=== PATIENT | female | born 2005 | race Hispanic/Latino ===

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

== ENCOUNTER 2024-09-20 20:08 | Emergency (ER) | payer OTHER, SELFPAY ==
--- OUTSIDE RECORDS SUMMARY | 2024-09-20 20:10 | XMS_ITS | Clinical Summary ---
Author Organization [facility] Address [address] [place] [address] Care Team Providers Care Tube Cutter Operator Name Role Phone Keanu Potter BELT MEASURER-HOT DIE PICKER Primary Care Pro vider Keanu Potter BELT MEASURER-HOT DIE PICKER Unavailable Source Comments [facility],non-owned Affiliates and Associated Physician Practices is amultiple site organization consisting of ambulatory clinics and hospital sitesin [place], [place], [place] and [place]. This disclosure is being madepursuant to the Care Everywhere program and may not contain all information available regarding this patient. Last updated 17.[facility] [employer] Allergies No known active allergies Medications * Be aware that medications may not be up to date on this document. Alwaysverify current medications with the patient. BD INSULIN SYRINGE ULTRAFINE 31G X 15/64 0.5 ML syringeIndication s:Type 1 diabetes mellitus without complication, with long-term current use of insulin (HCC) Use for injections 4-6 times daily. 100 Syringe 11 09/20/19 16 Active GNP ALCOHOL SWABS 70 % USE DIRECTED 200 Each 10 05/06/19 Active azaTHIOprine 100 MGIndications:Aut oimmune hepatitis (HCC) Take 150 mg by mouth once daily 45 tablet 3 11/10/19 Active Additional Information Patient not taking.Reported on 09/15/2023 Blood Glucose Monitoring Suppl (Jirafe VERIO FLEX SYSTEM) w/Device KIT Use 1 kit as directed 2 kit 1 11/09/19 Active One Touch Delica Lancets Use to test blood sugars 5-7 times daily 200 Each 11/09/19 Active predniSONE (DELTASONE) 5 MG tablet Take 1 tablet by mouth once daily 30 tablet 5 09/14/19 Active Additional Information Patient not taking.Reported on 09/15/2023 metFORMIN (Glucophage) 500 MG tabletIndications :Controlled type 2 diabetes mellitus without complication, with long-term current use of insulin (HCC) 1 tab by mouth daily x 7 days, then 1 tab twice daily x 7 days, then 2 tabs am and 1 tab pm x 7 days, then 2 tabs twice daily. Take medication with food. 120 tablet 3 11/06/19 Active Additional Information Patient not taking.Reported on 09/15/2023 Glucagon, rDNA, (Glucagon Emergency) 1 MG KITIndications:Ty pe 1 diabetes mellitus without complication, with long-term current use of insulin ([facility]) Inject 1 mg into muscle as directed for severe low blood sugar reaction. 2 Each 11/06/19 Active Alcohol Swabs (SM Alcohol Prep)Indications: Type 1 diabetes mellitus without complication, with long-term current use of insulin (HCC) Use as directed to wipe skin prior to insulin injection 200 Each 11/06/19 Active insulin pen needle (B-D UF III MINI PEN NEEDLES) 31G X 5 MM needleIndications :Type 1 diabetes mellitus without complication, with long-term current use of insulin ([facility]) 4 times daily Use for injections 4-6 times daily. 200 Each 11/06/19 Active insulin glargine (Lantus/Semglee) 100 units/mL penIndications:Ty pe 1 diabetes mellitus without complications (HCC) INJECT 36 UNITS ONCE DAILY DIRECTED BY PROVIDER. 15 mL 5 08/18/19 Active Glucagon 1 MG/0.2ML SOAJ INJECT 1 MG SUBCUTANEOUSLY NEEDED (ADMINSITER DIRECTED BY PROVIDER FOR SEVERE LOW BLOOD SUGAR) .4 mL 08/18/19 24 Active blood glucose test stripIndications: Type 1 diabetes mellitus without complications (HCC) USE TO TEST BLOOD SUGAR 4-6 TIMES A DAY DIRECTED BY PROVIDER. 200 strip 08/18/19 24 Active insulin lispro (HumaLOG;ADMelog) 100 UNIT/ML penIndications:Ty pe 1 diabetes mellitus without complications (HCC) INJECT 68 UNITS AT BREAKFAST, 50 UNIT AT LUNCH AND 80 UNITS DINNER, 14 AT SNACKS IN ADDITION TO CORRECTION INSULIN. MAX 150 UNITS/DAY. PLEASE ALLOW FOR TWO UNIT AIR SHOT. 60 mL 5 08/18/19 24 Active Insulin Pen Needle 32G X 4 MM MISCIndications:T ype 2 diabetes mellitus without complications (HCC) USE TO ADMINISTER INSULIN 4-6 TIMES A DAY DIRECTED 200 Each 11 08/18/19 24 Active Continuous Glucose Cotton Seed Culler (Dexcom G7 Cotton Seed Culler) DEVIIndications:T ype 2 diabetes mellitus without complications (HCC) USE 1 DEVICE ONCE FOR 1 DOSE 1 Each 08/18/19 24 Active Continuous Glucose Sensor (Dexcom G7 Sensor) MISCIndications:T ype 2 diabetes mellitus without complications (HCC) USE 1 EACH EVERY 10 DAYS 3 Each 08/18/19 24 Active insulin lispro (HumaLOG;ADMelog) 100 UNIT/ML penIndications:Ty pe 1 diabetes mellitus without complications (HCC) INJECT FOR ALL MEALS/SNACKS AND HYPERGLYCEMIA CORRECTIONS DIRECTED BY PROVIDER. MAX 75 UNITS/DAY. 30 mL 5 08/18/19 24 Active Lancets (ONETOUCH DELICA PLUS 33G EXTRA FINE LANCET)Indication s:Type 1 diabetes mellitus without complications (HCC) USE TO CHECK BLOOD SUGARS 4-6 TIMES A DAY DIRECTED 200 Each 3 08/18/19 24 Active Active Problems Patient Care Coordination No te Formatting of this note migh t be different from the original. Okay to give info/discuss info with school nurse. LAMP- English. Problem Noted Date Diagnosed Date Microalbuminuria 12/03/2018 Overview (08/14/2020): date age ualb/creat (mg/g) Creat (mg/dL) 12/29/2015 39 (< 30) 09/16/2016 31 (< 30) 12/28/2016 16 (< 30) 02/17/2018 0.41 08/24/2018 25 (< 30) 09/30/2018 146 (< 30) 03/08/2019 26 (< 30) 0.35 08/14/2020 44 (< 30) Assessment & Plan (08/14/2020 4:24 PM CDT): Minimally elevated random urine microalbumin/creatinine ratio, in child with diabetes mellitus x almost 5 years Obtain first morning voided urine specimen for urine microalbumin/creatinine Assessment & Plan (03/08/2019 5:23 PM NATIONAL SALES MANAGER): H/o microalbuminuria; cause uncertain 1. Repeat spot urine microalbumin/creatinine level (consider pediatric nephrology referral if it remains elevated) Assessment & Plan (12/03/2018 9:36 AM CDT): Microalbuminuria, ? Transient vs diabetes mellitus related 1. Obtain first morning voided urine specimen for microalbumin/creatinine ratio at [facility] Nonalcoholic fatty liver disease 05/02/2017 Cyst of ovary 01/25/2017 Noncompliance with medication regimen 01/17/2017 Language barrier affecting health care 7 Obesity 06/03/2016 Autoimmune hepatitis 12/31/2015 Overview (12/31/2015): Suspected autoimmune hepatitis history: Medications: Azathioprine: increased to 150mg from 100mg in 12/23 - Started 10/23/15 (normal TPMT) Prednisone: initial wean with reinitiation of high dose Prednisone in 12/23 due to ALT of 340 - Started 10/16/15 - Labs prior to start of medications: ALT 193, AST 103 09/21/15 F-actin (smooth muscle Ab): 94 (>30 is moderate to strong positive) KRISTIN negative Anti-LKM Ab negative IgG level normal at 1281 ([id number]) Liver Biopsy 09/30/15: Labs at the time of biopsy: ALT 547 AST 316 LIVER, NEEDLE BIOPSY: - CHRONIC HEPATITIS WITH UIWA-DB-ACXTJART ACTIVITY, SEE COMMENT. - FOCAL BRIDGING FIBROSIS. Sections show cores of hepatic parenchyma involved by a mixed inflammatory infiltrate within the portal tracts comprising lymphocytes, eosinophils, neutrophils, and a rare plasma cell. The degree of portal inflammation is mild overall, with focal moderate involvement. There is mild but extensive interface activity. Lobular inflammatory foci are infrequent, but there is satellitosis, scattered hepatocellular swelling, apoptosis (acidophil bodies), and lipofuscin-laden macrophages within the lobules. Macrosteatosis is present in less than 5% of the parenchyma, distributed predominantly in zone 1, along with glycogenated nuclei. COMMENT: The histopathologic findings in this case are nonspecific and may be seen in a variety of settings. A diagnosis of autoimmune hepatitis is favored, despite the relative lack of plasma cells in the inflammatory infiltrate Assessment & Plan (08/19/2023 2:43 PM CDT): repeat cmp, ggt 2. f/u with pediatric gastroenterology/hepatology Controlled type 2 diabetes m ellitus without complication, with long-term current use of insulin 09/19/2015 Overview (11/22/2017): Diagnosed (09/19/2015): Diabetes mellitus, probable type II (elevated C-peptide/acanthosis nigricans); hemoglobin A1c 10.1 %; C-peptide 6.36 ng/dL (0.78-1.89), serum anti-LINDA < 5 U/mL (< 5.0), anti-insulin [IA-2 ab] < 0.8 U/mL (0.0-0.8), anti-islet cell IgG antibodies < 1:4 (< 1:4). [Complicated by chronic prednisone therapy to treat autoimmune hepatitis (Sep, 2015)] Complications: none Hospitalizations: none Screening(s): [09/21/2015] - TSH 1.07 uIU/mL (0.35-4.95), free T4 1.13 ng/dL (0.70-1.48); [12/29/15] urine microalbumin/creatinine (mg/g) 40 (< 30), [09/16/16] urine microalbumin/creatinine (mg/g) 32 (< 30),[09/16/16] urine microalbumin/creatinine (mg/g) 16 (< 30), Assessment & Plan (08/19/2023 2:42 PM CDT): Diabetes mellitus, Type 2, duration: 7 year(s), complications: none; Glycemic control: poor control/missed medication doses/lapsed health insurance; PHQ-9 (depression) screenin, mental health referral(s): no; Recommended: resume basal/bolus insulin (Edwige would like to start counting carbs with meals rather than fixed doses); RD visit: yes; RN/CDE visit: yes, review diabetes education, insulin to carb dosing; Counseled: lab results, treatment options, and follow up plan; prescriptions refilled: yes; school letter provided: N\A; Schedule eye examination: yes; rtc: 2 month(s) Orders Placed This Encounter COMPREHENSIVE METABOLIC PANEL Standing Status: Future Number of Occurrences: 1 Standing Expiration Date: 08/07/2024 Order Specific Question: Release to patient Answer: Immediate LIPID PROFILE Standing Status: Future Number of Occurrences: 1 Standing Expiration Date: 08/07/2024 Order Specific Question: Release to patient Answer: Immediate MICROALB/CREAT RATIO URINE RANDOM PANEL Standing Status: Future Standing Expiration Date: 08/07/2024 Order Specific Question: Release to patient Answer: Immediate URIC ACID BLOOD Standing Status: Future Number of Occurrences: 1 Standing Expiration Date: 08/12/2024 Order Specific Question: Release to patient Answer: Immediate PTH INTACT W/O CALCIUM Standing Status: Future Number of Occurrences: 1 Standing Expiration Date: 08/12/2024 Order Specific Question: Release to patient Answer: Immediate GGT Standing Status: Future Number of Occurrences: 1 Standing Expiration Date: 08/12/2024 Order Specific Question: Release to patient Answer: Immediate Referral to Medical Nutrition Therapy Standing Status: Standing Number of Occurrences: 4 Standing Expiration Date: 08/17/2024 Referral Priority: Routine Referral Type: Consultation Referral Reason: Specialty Services Required Referral Location: [facility] Number of Visits Requested: 4 Referral to Medical Nutrition Therapy Standing Status: Standing Number of Occurrences: 1 Referral Priority: Routine Referral Type: Consultation Referral Reason: Specialty Services Required Referral Location: [facility] Number of Visits Requested: 4 HEMOGLOBIN A1C - POCT (IP) LEEROY Standing Status: Future Number of Occurrences: 1 Standing Expiration Date: 08/07/2024 Order Specific Question: Release to patient Answer: Immediate Glucose sensor [Dexcom G 6] daily: yes Lantus 36 u daily Humalog 1 u per 10 g carb (am), 1 u per 10 g carb (noon), 1 u per 10 g carb (pm), 1 u per 10 g carb (snack) Correction: 2 u per 50 mg/dL over 150 mg/dL Sick day correction: 2 u per 50 mg/dL over 150 mg/dL Follow up by telephone in 1-2 day(s) to review interval blood glucose levels and adjust insulin dose Return visit in 2 month(s). Assessment & Plan (11/05/2021 2:25 PM CDT): Diabetes mellitus, Type 2, duration: 6 year(s), complications: none; Glycemic control: fair control; PHQ-9 (depression) screening: N/A, mental health referral(s): no; Recommended: add metformin daily, see below, continue current insulin dose, hope to lower insulin dose with increasing metformin dose; RD visit: no; Counseled: increasing daily physical activity; lab results, treatment options and follow up plan; prescriptions refilled: yes; school letter provided: no; Schedule eye examination: yes; rtc: 3 month(s) Orders Placed This Encounter LIPID PROFILE Standing Status: Future Number of Occurrences: 1 Standing Expiration Date: 10/22/2022 Order Specific Question: Release to patient Answer: Immediate LIPID PROFILE Standing Status: Standing Number of Occurrences: 1 Order Specific Question: Release to patient Answer: Immediate HEMOGLOBIN A1C - POCT (IP) BEAKER Standing Status: Future Number of Occurrences: 1 Standing Expiration Date: 10/22/2022 Order Specific Question: Release to patient Answer: Immediate HEMOGLOBIN A1C - POCT (IP) BEAKER Standing Status: Standing Number of Occurrences: 1 Order Specific Question: Release to patient Answer: Immediate metFORMIN (Glucophage) 500 MG tablet Si tab by mouth daily x 7 days, then 1 tab twice daily x 7 days, then 2 tabs am and 1 tab pm x 7 days, then 2 tabs twice daily. Take medication with food. Dispense: 120 tablet Refill: 3 Glucagon, rDNA, (Glucagon Emergency) 1 MG KIT Sig: Inject 1 mg into muscle as directed for severe low blood sugar reaction. Dispense: 2 Each Refill: 1 Alcohol Swabs (SM Alcohol Prep) Sig: Use as directed to wipe skin prior to insulin injection Dispense: 200 Each Refill: 11 insulin glargine (Lantus SoloStar) pen Sig: Use 36 units daily. Dispense: 30 mL Refill: 5 insulin lispro (HumaLOG KwikPen) 100 UNIT/ML pen Sig: INJECT 68 UNITS AT BREAKFAST, 50 UNIT AT LUNCH AND 80 UNITS DINNER, 14 AT SNACKS IN ADDITION TO CORRECTION INSULIN. Dispense: 75 mL Refill: 5 insulin pen needle (B-D UF III MINI PEN NEEDLES) 31G X 5 MM needle Si times daily Use for injections 4-6 times daily. Dispense: 200 Each Refill: 11 Lantus 36 u daily Humalog 68 u (am), 50 u (noon), 80 u (pm), 14 u (snack) Correction: 2 u per 50 mg/dL over 150 mg/dL Follow up by telephone in 7 day(s) to review interval blood glucose levels and adjust insulin dose Return visit in 3 months. Assessment & Plan (07/02/2021 1:29 PM CDT): Diabetes mellitus, type 2 (+/-) steroid induced (continues prednisone 5 mg daily) for autoimmune hepatitis, nearing 6 years duration, excellent glycemic control; Advised: no changes to insulin doses; advised increased daily physical activity, will d/c Ped Hepatology about adding metformin, schedule eye examination, rtc 4 months. Lantus 34 u daily Humalog 68 u at breakfast, 50 u at lunch, 80 u at dinner; correction: 2 u per 50 mg/dL over 150 mg/dL (max: 12 u) Home glucose monitoring before meals/HS and prn Increase daily physical activity F/u by telephone as needed Return visit in four months Assessment & Plan (03/05/2021 1:20 PM NATIONAL SALES MANAGER): Diabetes mellitus, type 2 (+/-) steroid induced (continues prednisone 5 mg daily), 5-1/2 years duration, excellent glycemic control; PHQ-9 = 0; microalbuminuria, resolved on f/u studies. Advised: increase daily physical activity, decrease Lunchtime Humalog to 50 units, eye examination in the Spring, rtc 4 months. Lantus 34 u daily Humalog 68 u at breakfast, 50 u at lunch, 80 u at dinner; correction: 2 u per 50 mg/dL over 150 mg/dL (max: 12 u) Home glucose monitoring before meals/HS and prn Increase daily physical activity F/u by telephone as needed Return visit in four months. Assessment & Plan (11/20/2020 1:41 PM CDT): Diabetes mellitus, type 2 vs steroid induced (continues prednisone 5 mg daily), improved glycemic control (following dietary changes at home); microalbuminuria, resolved on f/u studies. Advised: increase daily physical activity, decrease Lantus to 34 u and decrease Lunchtime Humalog to 52 units, f/u Lantus 34 u daily Humalog 68 u at breakfast, 52 u at lunch, 80 u at dinner; correction: 2 u per 50 mg/dL over 150 mg/dL (max: 12 u) Home glucose monitoring before meals/HS and prn Influenza immun today Increase daily physical activity F/u by telephone as needed Return visit in three months. Assessment & Plan (08/14/2020 1:44 PM CDT): Type 2 diabetes mellitus, almost five years duration, fair overall glycemic control; weight stable, 215-220 mg/dL over the past year or so. no changes to insulin doses; encourage increased daily physical activity to promote weight loss and improve glycemic control; clinical flight radio officer visit today Basaglar 36 units at 9 p.m. Novolog/humalo units at breakfast; 50 units at lunch; 80 units at supper and 14 units with snacks [give insulin injections prior to meals/snacks] Mealtime correction: 2 unit Novolog/Humalog for every 50 mg/dL over 150 mg/dL. Edwige Mckeon's home target blood glucose range: 70-150 mg/dL Target blood glucose levels for children with type I diabetes mellitus Under age 4 yr: 100-200 mg/dL Age 4-7 yr: 80-180 mg/dL Over age 7 yr: 80-150 mg/dL Insulin injections given by: self Insulin injection sites: abdominal wall, thigh(s) Avoid giving insulin injections in the n/a - lipohypertrophied areas Consistent carbohydrate counting meal planning (gluten free no) Avoid/minimize between meal snacking without taking insulin. Per the [place] [employer] practice guidelines [Diabetes Care 2015 38 (suppl 1): S1-S94], people with type 1 diabetes mellitus on multiple-dose insulin or insulin pump therapy should perform SMBG prior to meals and snacks, occasionally post-prandial, at bedtime, prior to exercise, when they suspect low blood glucose, after treating low blood glucose until they are normoglycemic, and prior to critical tasks such as driving. Record home blood glucose records in a logbook and bring this logbook to each office visit. Obtain and wear medic alert identification at all times. Maintain current weight:: Yes Return appointment in 3 months Assessment & Plan (12/27/2019 5:40 PM NATIONAL SALES MANAGER): Continues to have fair, overall glycemic control; weight increased about 6 lb since Feb 07, 2019; no changes to insulin doses; encourage daily physical activity to promote weight loss and improve glycemic control; clinical flight radio officer visit today Basaglar 36 units at 9 p.m. Novolog/humalo units at breakfast; 50 units at lunch; 80 units at supper and 14 units with snacks [give insulin injections prior to meals/snacks] Mealtime correction: 2 unit Novolog/Humalog for every 50 mg/dL over 150 mg/dL. Edwige Mckeon's home target blood glucose range: 70-150 mg/dL Target blood glucose levels for children with type I diabetes mellitus Under age 4 yr: 100-200 mg/dL Age 4-7 yr: 80-180 mg/dL Over age 7 yr: 80-150 mg/dL Insulin injections given by: self Insulin injection sites: abdominal wall, thigh(s) Avoid giving insulin injections in the n/a - lipohypertrophied areas Consistent carbohydrate counting meal planning (gluten free no) Avoid/minimize between meal snacking without taking insulin. Per the [place] [employer] practice guidelines [Diabetes Care 2015 38 (suppl 1): S1-S94], people with type 1 diabetes mellitus on multiple-dose insulin or insulin pump therapy should perform SMBG prior to meals and snacks, occasionally post-prandial, at bedtime, prior to exercise, when they suspect low blood glucose, after treating low blood glucose until they are normoglycemic, and prior to critical tasks such as driving. Record home blood glucose records in a logbook and bring this logbook to each office visit. Obtain and wear medic alert identification at all times. Maintain current weight:: Yes Return appointment in 3 months Assessment & Plan (09/24/2019 1:33 PM CDT): Fair, overall glycemic control; no changes to insulin doses; encourage daily physical activity to promote weight loss and improve glycemic control; PHQ-9 = 0 Basaglar 36 units at 9 p.m. Novolog/humalo units at breakfast; 50 units at lunch; 80 units at supper and 14 units with snacks [give insulin injections prior to meals/snacks] Mealtime correction: 2 unit Novolog/Humalog for every 50 mg/dL over 150 mg/dL. Edwige Mckeon's home target blood glucose range: 70-150 mg/dL Target blood glucose levels for children with type I diabetes mellitus Under age 4 yr: 100-200 mg/dL Age 4-7 yr: 80-180 mg/dL Over age 7 yr: 80-150 mg/dL Insulin injections given by: self Insulin injection sites: abdominal wall, thigh(s) Avoid giving insulin injections in the n/a - lipohypertrophied areas Consistent carbohydrate counting meal planning (gluten free no) Avoid/minimize between meal snacking without taking insulin. Per the [place] [employer] practice guidelines [Diabetes Care 2015 38 (suppl 1): S1-S94], people with type 1 diabetes mellitus on multiple-dose insulin or insulin pump therapy should perform SMBG prior to meals and snacks, occasionally post-prandial, at bedtime, prior to exercise, when they suspect low blood glucose, after treating low blood glucose until they are normoglycemic, and prior to critical tasks such as driving. Record home blood glucose records in a logbook and bring this logbook to each office visit. Obtain and wear medic alert identification at all times. Maintain current weight:: Yes Follow-up by telephone (office number: [phone], option #4 or fax number: [phone]) as needed to review Edwige's interval home blood glucose records and make any additional insulin dose adjustments. Schedule annual eye examination Return appointment in 3 months Assessment & Plan (03/08/2019 5:22 PM NATIONAL SALES MANAGER): Excellent glycemic control; no changes; encourage daily physical activity to promote weight loss; no change in insulin dose Basaglar 36 units at 9 p.m. Novolog/humalo units at breakfast; 50 units at lunch; 80 units at supper and 14 units with snacks [give insulin injections prior to meals/snacks] Mealtime correction: 2 unit Novolog/Humalog for every 50 mg/dL over 150 mg/dL. Edwige Mckeon's home target blood glucose range: 70-150 mg/dL Target blood glucose levels for children with type I diabetes mellitus Under age 4 yr: 100-200 mg/dL Age 4-7 yr: 80-180 mg/dL Over age 7 yr: 80-150 mg/dL Insulin injections given by: self Insulin injection sites: abdominal wall, thigh(s) Avoid giving insulin injections in the n/a - lipohypertrophied areas Consistent carbohydrate counting meal planning (gluten free no) Avoid/minimize between meal snacking without taking insulin. Per the [place] [employer] practice guidelines [Diabetes Care 2015 38 (suppl 1): S1-S94], people with type 1 diabetes mellitus on multiple-dose insulin or insulin pump therapy should perform SMBG prior to meals and snacks, occasionally post-prandial, at bedtime, prior to exercise, when they suspect low blood glucose, after treating low blood glucose until they are normoglycemic, and prior to critical tasks such as driving. Record home blood glucose records in a logbook and bring this logbook to each office visit. Obtain and wear medic alert identification at all times. Maintain current weight:: Yes Follow-up by telephone (office number: [phone], option #4 or fax number: [phone]) as needed to review Edwige's interval home blood glucose records and make any additional insulin dose adjustments. Return appointment in 3 months Assessment & Plan (12/03/2018 9:36 AM CDT): Excellent glycemic control; no changes; encourage daily physical activity to promote weight loss; PHQ-9 = 0 Basaglar 36 units at 9 p.m. Novolog/humalo units at breakfast; 50 units at lunch; 80 units at supper and 14 units with snacks [give insulin injections prior to meals/snacks] Mealtime correction: 2 unit Novolog/Humalog for every 50 mg/dL over 150 mg/dL. Edwige Mckeon's home target blood glucose range: 70-150 mg/dL Target blood glucose levels for children with type I diabetes mellitus Under age 4 yr: 100-200 mg/dL Age 4-7 yr: 80-180 mg/dL Over age 7 yr: 80-150 mg/dL Insulin injections given by: self Insulin injection sites: abdominal wall, thigh(s) Avoid giving insulin injections in the n/a - lipohypertrophied areas Consistent carbohydrate counting meal planning (gluten free no) Avoid/minimize between meal snacking without taking insulin. Per the [place] [employer] practice guidelines [Diabetes Care 2015 38 (suppl 1): S1-S94], people with type 1 diabetes mellitus on multiple-dose insulin or insulin pump therapy should perform SMBG prior to meals and snacks, occasionally post-prandial, at bedtime, prior to exercise, when they suspect low blood glucose, after treating low blood glucose until they are normoglycemic, and prior to critical tasks such as driving. Record home blood glucose records in a logbook and bring this logbook to each office visit. Obtain and wear medic alert identification at all times. Maintain current weight:: Yes Follow-up by telephone (office number: [phone], option #4 or fax number: [phone]) as needed to review Edwige's interval home blood glucose records and make any additional insulin dose adjustments. Return appointment in 3 months Assessment & Plan (08/24/2018 6:10 PM CDT): Excellent glycemic control; no changes; encourage daily physical activity to promote weight loss Mohamudaglar 36 units at 9 p.m. Novolog/humalo units at breakfast; 50 units at lunch; 80 units at supper and 14 units with snacks [give insulin injections prior to meals/snacks] Mealtime correction: 2 unit Novolog/Humalog for every 50 mg/dL over 150 mg/dL. Ediwge Mckeon's home target blood glucose range: 70-150 mg/dL Target blood glucose levels for children with type I diabetes mellitus Under age 4 yr: 100-200 mg/dL Age 4-7 yr: 80-180 mg/dL Over age 7 yr: 80-150 mg/dL Insulin injections given by: self Insulin injection sites: abdominal wall, thigh(s) Avoid giving insulin injections in the n/a - lipohypertrophied areas Consistent carbohydrate counting meal planning (gluten free no) Avoid/minimize between meal snacking without taking insulin. Per the [place] [employer] practice guidelines [Diabetes Care 2015 38 (suppl 1): S1-S94], people with type 1 diabetes mellitus on multiple-dose insulin or insulin pump therapy should perform SMBG prior to meals and snacks, occasionally post-prandial, at bedtime, prior to exercise, when they suspect low blood glucose, after treating low blood glucose until they are normoglycemic, and prior to critical tasks such as driving. Record home blood glucose records in a logbook and bring this logbook to each office visit. Obtain and wear medic alert identification at all times. Maintain current weight:: Yes Follow-up by telephone (office number: [phone], option #4 or fax number: [phone]) in 1 weeks to review Edwige's interval home blood glucose records and make any additional insulin dose adjustments. Fax blood glucose levels to our offices (fax: [phone]) the last day of school for our review to adjust insulin dose prior to vacation Return appointment in 3 months Assessment & Plan (05/25/2018 1:24 PM CDT): Excellent glycemic control Lantus 36 units at 9 p.m. Novolog/humalo units at breakfast; 54 u at lunch; 80 u at supper and 14 u with snacks [give insulin injections prior to meals/snacks] Mealtime correction: 2 unit Novolog/Humalog for every 50 mg/dL over 150 mg/dL. Edwige Mckeon's home target blood glucose range: 70-150 mg/dL Target blood glucose levels for children with type I diabetes mellitus Under age 4 yr: 100-200 mg/dL Age 4-7 yr: 80-180 mg/dL Over age 7 yr: 80-150 mg/dL Insulin injections given by: self Insulin injection sites: abdominal wall, arm(s), thigh(s) Avoid giving insulin injections in the n/a - lipohypertrophied areas Consistent carbohydrate counting meal planning (gluten free no) Avoid/minimize between meal snacking without taking insulin. Per the [place] [employer] practice guidelines [Diabetes Care 2015 38 (suppl 1): S1-S94], people with type 1 diabetes mellitus on multiple-dose insulin or insulin pump therapy should perform SMBG prior to meals and snacks, occasionally post-prandial, at bedtime, prior to exercise, when they suspect low blood glucose, after treating low blood glucose until they are normoglycemic, and prior to critical tasks such as driving. Record home blood glucose records in a logbook and bring this logbook to each office visit. Obtain and wear medic alert identification at all times. Follow-up by telephone (office number: [phone], option #4 or fax number: [phone]) in as needed weeks to review Edwige's interval home blood glucose records and make any additional insulin dose adjustments. Return appointment in 3 months Assessment & Plan (02/23/2018 1:17 PM NATIONAL SALES MANAGER): Excellent glycemic control Lantus 36 units at 9 p.m. Novolog/humalo units at breakfast; 54 u at lunch; 80 u at supper and 14 u with snacks [give insulin injections prior to meals/snacks] Mealtime correction: 2 unit Novolog/Humalog for every 50 mg/dL over 150 mg/dL. Edwige Mckeon's home target blood glucose range: 70-150 mg/dL Target blood glucose levels for children with type I diabetes mellitus Under age 4 yr: 100-200 mg/dL Age 4-7 yr: 80-180 mg/dL Over age 7 yr: 80-150 mg/dL Insulin injections given by: self Insulin injection sites: abdominal wall, arm(s), thigh(s) Avoid giving insulin injections in the n/a - lipohypertrophied areas Consistent carbohydrate counting meal planning (gluten free no) Avoid/minimize between meal snacking without taking insulin. Per the [place] [employer] practice guidelines [Diabetes Care 2015 38 (suppl 1): S1-S94], people with type 1 diabetes mellitus on multiple-dose insulin or insulin pump therapy should perform SMBG prior to meals and snacks, occasionally post-prandial, at bedtime, prior to exercise, when they suspect low blood glucose, after treating low blood glucose until they are normoglycemic, and prior to critical tasks such as driving. Record home blood glucose records in a logbook and bring this logbook to each office visit. Obtain and wear medic alert identification at all times. Follow-up by telephone (office number: [phone], option #4 or fax number: [phone]) in as needed weeks to review Edwige's interval home blood glucose records and make any additional insulin dose adjustments. Return appointment in 3 months Assessment & Plan (11/22/2017 9:19 AM CDT): Excellent glycemic control Lantus 36 units at 9 p.m. Novolog/humalo units at breakfast; 54 u at lunch; 80 u at supper and 14 u with snacks [give insulin injections prior to meals/snacks] Mealtime correction: 2 unit Novolog/Humalog for every 50 mg/dL over 150 mg/dL. Edwige Mckeon's home target blood glucose range: 70-150 mg/dL Target blood glucose levels for children with type I diabetes mellitus Under age 4 yr: 100-200 mg/dL Age 4-7 yr: 80-180 mg/dL Over age 7 yr: 80-150 mg/dL Insulin injections given by: self Insulin injection sites: abdominal wall, arm(s), thigh(s) Avoid giving insulin injections in the n/a - lipohypertrophied areas Consistent carbohydrate counting meal planning (gluten free no) Avoid/minimize between meal snacking without taking insulin. Per the [place] [employer] practice guidelines [Diabetes Care 2015 38 (suppl 1): S1-S94], people with type 1 diabetes mellitus on multiple-dose insulin or insulin pump therapy should perform SMBG prior to meals and snacks, occasionally post-prandial, at bedtime, prior to exercise, when they suspect low blood glucose, after treating low blood glucose until they are normoglycemic, and prior to critical tasks such as driving. Record home blood glucose records in a logbook and bring this logbook to each office visit. Obtain and wear medic alert identification at all times. Follow-up by telephone (office number: [phone], option #4 or fax number: [phone]) in as needed weeks to review Edwige's interval home blood glucose records and make any additional insulin dose adjustments. Return appointment in 3 months Assessment & Plan (08/16/2017 2:52 PM CDT): Lantus 36 units at 9 p.m. Novolog/humalo units at breakfast; 72 u at lunch; 80 u at supper and 14 u with snacks [give insulin injections prior to meals/snacks] Mealtime correction: 2 unit Novolog/Humalog for every 50 mg/dL over 150 mg/dL. Edwige Mckeon's home target blood glucose range: 70-150 mg/dL Target blood glucose levels for children with type I diabetes mellitus Under age 4 yr: 100-200 mg/dL Age 4-7 yr: 80-180 mg/dL Over age 7 yr: 80-150 mg/dL Insulin injections given by: self Insulin injection sites: abdominal wall, arm(s), thigh(s) Avoid giving insulin injections in the n/a - lipohypertrophied areas Consistent carbohydrate counting meal planning (gluten free no) Avoid/minimize between meal snacking without taking insulin. Per the [place] [employer] practice guidelines [Diabetes Care 2015 38 (suppl 1): S1-S94], people with type 1 diabetes mellitus on multiple-dose insulin or insulin pump therapy should perform SMBG prior to meals and snacks, occasionally post-prandial, at bedtime, prior to exercise, when they suspect low blood glucose, after treating low blood glucose until they are normoglycemic, and prior to critical tasks such as driving. Record home blood glucose records in a logbook and bring this logbook to each office visit. Obtain and wear medic alert identification at all times. Follow-up by telephone (office number: [phone], option #4 or fax number: [phone]) in as needed weeks to review Edwige's interval home blood glucose records and make any additional insulin dose adjustments. Return appointment in 3 months Assessment & Plan (05/06/2017 9:12 AM CDT): Improved glycemic control: Lantus 36 units at 9 p.m. Novolog/humalo units at breakfast; 72 units at lunch; 80 units at dinner and 14 units with snacks [give insulin injections prior to meals/snacks] Mealtime correction: 2 unit Novolog/Humalog for every 50 mg/dL over 150 mg/dL. Edwige Mckeon's home target blood glucose range: 70-150 mg/dL Target blood glucose levels for children with type I diabetes mellitus Under age 4 yr: 100-200 mg/dL Age 4-7 yr: 80-180 mg/dL Over age 7 yr: 80-150 mg/dL Insulin injections given by: self Insulin injection sites: abdominal wall, arm(s) Avoid giving insulin injections in the n/a - lipohypertrophied areas Consistent carbohydrate counting meal planning (gluten free no) Avoid/minimize between meal snacking without taking insulin. Per the [place] [employer] practice guidelines [Diabetes Care 2015 38 (suppl 1): S1-S94], people with type 1 diabetes mellitus on multiple-dose insulin or insulin pump therapy should perform SMBG prior to meals and snacks, occasionally post-prandial, at bedtime, prior to exercise, when they suspect low blood glucose, after treating low blood glucose until they are normoglycemic, and prior to critical tasks such as driving. Record home blood glucose records in a logbook and bring this logbook to each office visit. Obtain and wear medic alert identification at all times. Maintain current weight:: Yes Follow-up by telephone (office number: [phone], option #4 or fax number: [phone]) in 2 weeks to review Edwige's interval home blood glucose records and make any additional insulin dose adjustments. Return appointment in 3 months Assessment & Plan (01/17/2017 5:34 PM NATIONAL SALES MANAGER): Basaglar 36 units at 10 p.m. Humalo units at breakfast and 72 units at Lunch & dinner; 14 units with snacks{ Mealtime correction: If blood sugar is 151-200 mg/dL give 2 extra units NovoLog/Humalog If blood sugar is 201-250 mg/dL give 4 extra units NovoLog/Humalog If blood sugar is 251-300 mg/dL give 6 extra units NovoLog/Humalog If blood sugar is over 300 mg/dL give 8 extra units NovoLog/Humalog Edwige Mckeon's home target blood glucose range: 70-150 mg/dL Target blood glucose levels for children with type I diabetes mellitus Under age 4 yr: 100-200 mg/dL Age 4-7 yr: 80-180 mg/dL Over age 7 yr: 80-150 mg/dL Insulin injections given by: self Insulin injection sites: abdominal wall, arm(s), thigh(s) Avoid giving insulin injections in the n/a - lipohypertrophied areas Consistent carbohydrate counting meal planning (gluten free no) Avoid/minimize between meal snacking without taking insulin. Per the [place] [employer] practice guidelines [Diabetes Care 2015 38 (suppl 1): S1-S94], people with type 1 diabetes mellitus on multiple-dose insulin or insulin pump therapy should perform SMBG prior to meals and snacks, occasionally post-prandial, at bedtime, prior to exercise, when they suspect low blood glucose, after treating low blood glucose until they are normoglycemic, and prior to critical tasks such as driving. Record home blood glucose records in a logbook and bring this logbook to each office visit. Obtain and wear medic alert identification at all times. Follow-up by telephone (office number: [phone], option #4 or fax number: [phone]) in 2 weeks to review Edwige's interval home blood glucose records and make any additional insulin dose adjustments. Return appointment in 4 months Assessment & Plan (09/20/2016 1:13 PM CDT): Basaglar 32 units at 9 p.m. Humalo units at breakfast; 62 units at lunch & dinner; 14 units snacks prior to meals/snacks] Mealtime correction: 2 unit Novolog/Humalog for every 50 mg/dL over 150 mg/dL. Edwige Mckeon's home target blood glucose range: 70-150 mg/dL Target blood glucose levels for children with type I diabetes mellitus Under age 4 yr: 100-200 mg/dL Age 4-7 yr: 80-180 mg/dL Over age 7 yr: 80-150 mg/dL Insulin injections given by: self Insulin injection sites: abdominal wall, arm(s), thigh(s) Avoid giving insulin injections in the n/a - lipohypertrophied areas Consistent carbohydrate counting meal planning (gluten free no) Avoid/minimize between meal snacking without taking insulin. Per the [place] [employer] practice guidelines [Diabetes Care 2015 38 (suppl 1): S1-S94], people with type 1 diabetes mellitus on multiple-dose insulin or insulin pump therapy should perform SMBG prior to meals and snacks, occasionally post-prandial, at bedtime, prior to exercise, when they suspect low blood glucose, after treating low blood glucose until they are normoglycemic, and prior to critical tasks such as driving. Record home blood glucose records in a logbook and bring this logbook to each office visit. Obtain and wear medic alert identification at all times. Schedule appointment for annual eye exam: yes; Last eye exam: September 2015 Influenza immunization: not done (at this office visit) Follow-up by telephone (office number: [phone], option #4 or fax number: [phone]) in 2 weeks to review Edwige's interval home blood glucose records and make any additional insulin dose adjustments. Return appointment in 3 months Assessment & Plan (06/21/2016 2:27 PM CDT): Fair glycemic control (while on prednisone 30 mg daily for autoimmune hepatitis) 1. Lantus 30 units daily. 2. Humalog 44 u with breakfast; 52 units with lunch, 50 units with dinner; and 14 units with snacks 3. Weight maintenance 4. Edwige Mckeon's home target blood glucose range: 70-150 mg/dL Target blood glucose levels for children with type I diabetes mellitus Under age 4 yr: 100-200 mg/dL Age 4-7 yr: 80-180 mg/dL Over age 7 yr: 80-150 mg/dL 5. Insulin injections given by: self 6. Insulin injection sites: abdominal wall Avoid giving insulin injections in the n/a - lipohypertrophied areas 7. Consistent carbohydrate counting meal planning (gluten free no) 8. Avoid/minimize between meal snacking without taking insulin. 9. Per the [place] [employer] practice guidelines [Diabetes Care 2015 38 (suppl 1): S1-S94], people with type 1 diabetes mellitus on multiple-dose insulin or insulin pump therapy should perform SMBG prior to meals and snacks, occasionally post-prandial, at bedtime, prior to exercise, when they suspect low blood glucose, after treating low blood glucose until they are normoglycemic, and prior to critical tasks such as driving. 10. Record home blood glucose records in a logbook and bring this logbook to each office visit. 11. Obtain and wear medic alert identification at all times. 12. Follow-up by telephone (office number: [phone], option #4 or fax number: [phone]) in 2 weeks to review Banchristiano's interval home blood glucose records and make any additional insulin dose adjustments. 13. Return appointment in 3 months Assessment & Plan (03/26/2016 5:21 PM NATIONAL SALES MANAGER): Lantus 20 units at 9 p.m. Novolog/humalo units at breakfast; 38 units at lunch; 32 units at dinner and 6 units at snacks Edwige Mckeon's home target blood glucose range: 70-150 mg/dL Target blood glucose levels for children with type I diabetes mellitus Under age 4 yr: 100-200 mg/dL Age 4-7 yr: 80-180 mg/dL Over age 7 yr: 80-150 mg/dL Insulin injections given by: self Insulin injection sites: abdominal wall, arm(s), thigh(s) Avoid giving insulin injections in the n/a - lipohypertrophied areas Consistent carbohydrate counting meal planning (gluten free no) Avoid/minimize between meal snacking without taking insulin. Per the [place] [employer] practice guidelines [Diabetes Care 2015 38 (suppl 1): S1-S94], people with type 1 diabetes mellitus on multiple-dose insulin or insulin pump therapy should perform SMBG prior to meals and snacks, occasionally post-prandial, at bedtime, prior to exercise, when they suspect low blood glucose, after treating low blood glucose until they are normoglycemic, and prior to critical tasks such as driving. Record home blood glucose records in a logbook and bring this logbook to each office visit. Obtain and wear medic alert identification at all times. Follow-up by telephone (office number: [phone], option #4 or fax number: [phone]) in 2 weeks to review Edwige's interval home blood glucose records and make any additional insulin dose adjustments. Return appointment in 3 months Assessment & Plan (11/14/2015 12:32 PM CDT): Lantus 16 units at 9 p.m. Humalog 6 units with breakfast; 7 units with lunch and dinner Edwige Mckeon's home target blood glucose range: 70-150 mg/dL Target blood glucose levels for children with type I diabetes mellitus Under age 4 yr: 100-200 mg/dL Age 4-7 yr: 80-180 mg/dL Over age 7 yr: 80-150 mg/dL Insulin injections given by: self Insulin injection sites: arm(s) Avoid giving insulin injections in the n/a - lipohypertrophied areas Consistent carbohydrate counting meal planning (gluten free no) Avoid/minimize between meal snacking without taking insulin. Per the [place] [employer] practice guidelines [Diabetes Care 2015 38 (suppl 1): S1-S94], people with type 1 diabetes mellitus on multiple-dose insulin or insulin pump therapy should perform SMBG prior to meals and snacks, occasionally post-prandial, at bedtime, prior to exercise, when they suspect low blood glucose, after treating low blood glucose until they are normoglycemic, and prior to critical tasks such as driving. Record home blood glucose records in a logbook and bring this logbook to each office visit. Obtain and wear medic alert identification at all times. Follow-up by telephone (office number: [phone], option #4 or fax number: [phone]) in 2 weeks to review Edwige's interval home blood glucose records and make any additional insulin dose adjustments. Return appointment in 2 months Assessment & Plan (10/20/2015 2:58 PM CDT): 1) no changes at this time 2) call immediately if 3 Blood sugars in a row over 200 3) continue present insulin doses for now 4) school nurse to call in blood sugars next tuesday Assessment & Plan (09/22/2015 9:45 AM CDT): Assessment: Edwige Mckeon is a previously healthy 10 yo female presenting with new onset diabetes, not in DKA, and elevated transaminases. C-peptide elevated, suggesting type 2 diabetes mellitus. Today is day 3 of education. Plan: CV/RESP: - stable on RA - vitals q8 ENDO: - Decrease Lantus to 15u - carb countin U for every 20 g carbs - SSI: 1 U for every 50 > 150 - glucose checks 5x daily - carb counting diet - Ia-2, LINDA, islet cell pending - consult for resources - Diabetes education consult - Nutrition consult - If she can go home, she will have her Lantus at bedtime and 3u Humalog with meals with no carb counting. FEN/GI: Transaminitis. DDx includes fatty liver disease vs infectious hepatitis (hepatitis A, B, C, EBV, CMV), thyroid disease, diabetic hepatopathy vs autoimmune hepatitis. GI consulted and following. - GI consulted and following - Additional work-up to include daily HFP, daily PT/INR panel, hepatitis panel, EBV PCR, CMV PCR, TSH, free T4, total IgG, KRISTIN, anti-LKM, anti-smooth muscle antibody - Liver US with doppler in the AM - Consider liver US if no clear etiology for elevated AST and ALT Assessment & Plan (09/21/2015 12:38 PM CDT): Assessment: Edwige Mckeon is a previously healthy 10 yo female presenting with new onset diabetes, not in DKA, and elevated transaminases. C-peptide elevated, suggesting type 2 diabetes mellitus. Today is day 2 of education. Plan: CV/RESP: - stable on RA - vitals q8 ENDO: - Decrease Lantus from 25U to 20U qHS - carb countin U for every 20 g carbs - SSI: 1 U for every 50 > 150 - glucose checks 5x daily - carb counting diet - Ia-2, LINDA, islet cell pending - consult for resources - Diabetes education consult - Nutrition consult FEN/GI: Transaminitis. DDx includes fatty liver disease vs infectious hepatitis (hepatitis A, B, C, EBV, CMV), thyroid disease, diabetic hepatopathy vs autoimmune hepatitis. GI consulted and following. - GI consulted and following - Additional work-up to include daily HFP, daily PT/INR panel, hepatitis panel, EBV PCR, CMV PCR, TSH, free T4, total IgG, KRISTIN, anti-LKM, anti-smooth muscle antibody - Liver US with doppler in the AM - Consider liver US if no clear etiology for elevated AST and ALT Assessment & Plan (09/20/2015 9:25 AM CDT): Assessment: Edwige Mckeon is a previously healthy 10 yo female presenting with new onset diabetes, not in DKA, and elevated transaminases. Most likely type I diabetes, however with obesity, acanthosis nigricans, and strong family history of diabetes type 2, NINA and type 2 diabetes are also possible. No family history of liver disease. No hepatomegaly or jaundice on exam. Rest of CMP wnl. Denies any medication use. Etiology likely secondary to LANE; however, given her elevated BP and liver enzymes metabolic syndrome should also be of concern. Will admit for further evaluation by GI and management of diabetes. Plan: - admit to Endocrine, Dr. Hartley CV/RESP: - stable on RA - vitals q8 ENDO: - strict I/Os - carb counting diet - C-peptide, Ia-2, LINDA, islet cell pending - Lantus 25 U qHS - carb countin U for every 20 g carbs - SSI: 1 U for every 50 > 150 - glucose checks q3 - SW consult for resources - Diabetes education consult - Nutrition consult FEN/GI: Transaminitis - AST 359, ALT 672, T bili 0.3 - at PCP: Total bilirubin 0.4; Alkaline phosphatase 263; AST 250; ALT 593, Lipid panel: Cholesterol 203 mg/dL; Triglycerides 162 mg/dL; HDL 45 mg/dL; LDL 126 mg/dL - GI on board -HFP, GGT, CK, PT/PTT/INR pending Assessment & Plan (09/20/2015 1:33 AM CDT): Assessment: Edwige Mckeon is a previously healthy 10 yo female presenting with new onset diabetes. HbA1c at PMD 9.7 two days prior to arrival. Here, level is 10.1. Patient is not in DKA. Most likely type I diabetes, however with obesity, acanthosis nigricans, and strong family history of diabetes type 2, NINA and type 2 diabetes also on differential. Will admit for further evaluation and management of diabetes. Plan: - admit to Endocrine, Dr. Hartley CV/RESP: - stable on RA - vitals q8 ENDO: - strict I/Os - carb counting diet - obtain C-peptide, Ia-2, LINDA, islet cell - Lantus 25 U qHS - carb countin U for every 15 g carbs - SSI: 1 U for every 50 > 150 - glucose checks q3 - SW consult for resources - Diabetes education consult - Nutrition consult Resolved Problems Problem Noted Date Diagnosed Date Resolved Date Transaminitis 09/19/2015 03/19/2016 Assessment & Plan (09/20/2015 1:34 AM CDT): Assessment: 10 yo obese female with new onset diabetes found to have elevated transaminases. Per family report, no previous history of elevation (although elevated at PMD 2 days prior). No family history of liver disease. No hepatomegaly or jaundice on exam. Rest of CMP wnl. Denies any medication use. Etiology likely secondary to LANE. Plan: - GI consult in AM Immunizations Immunization Administration Dates Next Due MicroEnsure primary monoval ent 12+ yr 0.3mL Purple cap 09/02/2020 INFLUENZA VACCINE, QUADR. (F LUZONE; FLULAVAL; FLUARIX; AFLURIA QUADRIVALENT; 6MO+), 0.5 ML (IIV4) 11/20/2020(),11/20/2020,12/27/2019,11/08,11/21/2017,12/29/2015 Family History Medical History Relation Name Comments Type 2 Diabetes Mellitus Maternal Uncle Type 2 Diabetes Mellitus Mother - Relation Name Status Comments Maternal Uncle Mother Social History Tobacco Use Types Packs/Day Years Used Date Smoking Tobacco: Never Passive Smoke Exposure: Never Smokeless Tobacco: Never Tobacco Cessation:Counseling Given: Not Answered Alcohol Use Standard Drinks/Week Comments Never 0 (1 standard drink = 0.6 oz pur e alcohol) AUDIT-C Answer Date Recorded Q1: How often do you have a drink containing alcohol? Never 09/15/2023 Q2: How many drinks containi ng alcohol do you have on a typical day when you are drinking? Patient does not drink Q3: How often do you have si x or more drinks on one occasion? Never 09/15/2023 Comments No Sex and Gender Information Value Date Recorded Sex Assigned at Not on file Legal Sex Female 2:49 PM CDT Gender Identity Not on file Sexual Orientation Not on file Last Filed Vital Signs Vital Sign Reading Time Taken Comments Blood Pressure 100/50 09/15/2023 2:00 PM CDT Pulse 90 09/15/2023 2:00 PM CDT Temperature 36.7 C (98.1 F) 09/15/2023 10:05 AM CDT Respiratory Rate 24 09/15/2023 2:00 PM CDT Oxygen Saturation 96% 09/15/2023 2:00 PM CDT Inhaled Oxygen Concentration - - Weight 102 kg (224 lb 13.9 oz) 09/15/2023 7:48 A M CDT Height 160 cm (5' 2.99) 09/15/2023 7:48 AM CDT Body Mass Index 39.84 09/15/2023 7:48 AM CDT Plan of Treatment Upcoming Encounters Date Type Department Care Team (Late st Contact Info) Description 11/20/2024 8:45 AM CDT Appointment [facility] Pediatrics - Diabetes Mgmt [address] [place] [phone] Chriss Hartley MD [address] [place] [phone] Fidelina Russo, BELT MEASURER-HOT DIE PICKER [address] [place] [phone] Health Maintenance Due Date Last Done Comments HPV VACCINE (1 - Risk 3-dose series) 2015 DIABETES RETINOPATHY SCREENING 12/28/2016 HIV SCREENING 2019 CHLAMYDIA/GONORRHEA SCREENING 2020 MENINGOCOCCAL (Group B) VACCINE SHARED DECISION-MAKING (1 of 2 - Standard) 2020 COVID-19 VACCINE (2 - Pfizer risk series) 09/23/2020 09/02/2020 DIABETES-FOOT EXAM WITH MONOFILAMENT 2022 DTAP/TDAP/TD VACCINES (1 - Tdap) 2023 HEPATITIS B VACCINE (1 of 3 - 19+ 3-dose series) 2023 PNEUMOCOCCAL VACCINE (1 of 2 - PCV) 2023 ZOSTER VACCINE (1 of 2) 2023 DEPRESSION SCREENING 02/08/2024 DIABETES - URINE PROTEIN SCREENING 02/08/2024 02/10/2021, 09/10/2020, 09/10/2020, Additional history exists DIABETES-HGB A1C 02/18/2024 08/18/2023, , 07/02/2021, Additional history exists DIABETES-SERUM CREATININE 09/14/20242023, 08/18/2023, 02/10/2021, Additional history exists INFLUENZA VACCINE (#1) 2024 , 12/27/2019, 11/30/2018, Additional history exists HEPATITIS C SCREENING Completed 09/21/2015 HIB VACCINE Aged Out No longer eligi ble based on patient's age to complete this topic MENINGOCOCCAL GROUPS A/C/Y/W VACCINE Aged Out No longer eligible based on patient's age to complete this topic Procedures Procedure Name Priority Date/Time Associated Diagnosis Comments COMPREHENSIVE METABOLIC PANEL STAT 09/15/2023 7:06 AM CDT Liver disease HEMOGLOBIN A1C - POCT INTERFACED Routine 08/18/2023 1:01 PM CDT MICROALB/CREAT RATIO URINE RANDOM PANEL Routine 02/10/2021 3:16 PM NATIONAL SALES MANAGER Microalbuminuria HEPATITIS SCREEN ACUTE Routine 6 12:46 PM CDT from Last 3 Months or Most Recently Relevant to Health Maintenance Results * (ABNORMAL) COMPREHENSIVE METABOLIC PANEL (09/15/2023 7:06 AM CDT) BUN 8 7 - 26 mg/dL 09/15/2023 7:52 AM [facility] Creatinine 0.42(L) 0.56 - 0.96 mg/dL 09/15/2023 7:52 AM [facility] Sodium 138 136 - 145 mmol/L 09/15/2023 7:52 AM [facility] Potassium 4.2 3.5 - 4.5 mmol/L 09/15/2023 7:52 AM [facility] Chloride 104 98 - 107 mmol/L 09/15/2023 7:52 AM [facility] CO2 26 22 - 29 mmol/L 09/15/2023 7:52 AM [facility] Glucose 194(H) 70 - 115 mg/dL 09/15/2023 7:52 AM [facility] Calcium 9.0 8.4 - 10.2 mg/dL 09/15/2023 7:52 AM [facility] Protein Total 7.6 6.0 - 8.3 g/dL 09/15/2023 7:52 AM [facility] Albumin 3.6 3.4 - 5.0 g/dL 09/15/2023 7:52 AM [facility] Bilirubin Total 0.4 0.2 - 1.2 mg/dL 09/15/2023 7:52 AM [facility] Alkaline Phosphatase 80 40 - 150 U/L 09/15/2023 7:52 AM [facility] ALT 47 5 - 55 U/L 09/15/2023 7:52 AM [facility] AST 29 5 - 34 U/L 09/15/2023 7:52 AM [facility] Anion Gap 8 6 - 16 09/15/2023 7:52 AM [facility] BUN/Creatinine Ratio 19 7 - 23 09/15/2023 7:52 AM [facility] Osmolality Calculated 290 275 - 295 mOsm/kg 09/15/2023 7:52 AM [facility] Albumin/Globulin Ratio 0.9(L) 1.1 - 2.3 09/15/2023 7:52 AM [facility] eGFR by CKD-EPI >90 >=90 mL/min/1.7 3 m2 09/15/2023 7:52 AM [facility] Blood BLOOD SPECIMEN / Unknown Lab Venipuncture / Unknown 09/15/2023 7:06 AM CDT 09/15/2023 7:12 AM CDT Yordy Bhandari MD LAB - CHEMISTRY ORDERABLES Final Result Performing Organization Address City/[facility] Co de Phone Number [facility] [address] [place] [phone], [facility] [phone] * (ABNORMAL) HEMOGLOBIN A1C - POCT INTERFACED (08/18/2023 1:01 PM CDT) Hemoglobin A1C POCT 10.6(H) <5.7 % 08/18/2023 1:06 PM T [facility] Estimated Average Glucose 258 mg/dL 08/18/2023 1:06 PM T [facility] Blood BLOOD SPECIMEN / Unknown 08/18/2023 1:01 PM CDT 08/18/2023 1:06 PM CDT Narrative [facility] - 08/18/2023 1:06 PM CDT HbA1c Interpretation: Normal: < 5.7% Pre-diabetes: 5.7-6.4% Diabetes: Equal to or greater than 6.5% This test should only be used to monitor, not diagnose diabetes. Test results diagnostic of diabetes should be repeated by another method with a different assay principle for confirmation. Treatment target values recommended by ADA and other clinical organizations should be used to evaluate metabolic control in patients. Patients with a hemoglobin of <7 or >24 should not be tested using this method. Patients known to have these conditions should be assayed by a test employing a different assay principle. Glycated hemoglobin F is not measured by the DCA HbA1c assay. At very high levels of hemoglobin F (> 10%), HbA1c is lower than expected. Patients with HbS or HbE should not be tested using this device. HbS or HbE cause a higher result than expected. Conditions such as hemolytic anemia, polycythemia, homozygous and HbC, can result in decreased life span of the red blood cells, which causes HbA1c results to be lower than expected. The Siemens DCA assay for the measurement of HbA1c is a National Glycohemoglobin Standardization Program (NGSP) certified method. us Chriss Hartley MD LAB - POINT OF CARE ORDERABLES F inal Result Performing Organization Address City/State/[facility] Co de Phone Number [facility] [address] [place] [address] * MICROALB/CREAT RATIO URINE RANDOM PANEL (02/10/2021 3:16 PM [facility]) Albumin Random Urine 26.2 Not Established ug/mL 02/10/2021 4:00 PM [facility] Creatinine Urine 161 Not Established mg/dL 02/10/2021 4:00 PM [facility] Urine Albumin/Creati nine Ratio 16 <30 mg/g 02/10/2021 4:00 PM [facility] Urine URINE SPECIMEN OBTAINED BY CLEAN CATCH PROCEDURE / Unknown Collection / Unknown 02/10/2021 3:16 PM NATIONAL SALES MANAGER 02/10/2021 3:34 PM NATIONAL SALES MANAGER us Paola Booker MD LAB - URINE CHEMISTRY ORDERABLES Final Result Performing Organization Address [facility]/ZIP Co de Phone Number [facility] [address] [place] [address], [facility] [phone] * HEPATITIS SCREEN ACUTE (09/21/2015 12:46 PM CDT) HAV Antibody IgM Non Reactive Non Reactive 09/23/2015 10:36 AM CDT [facility] HBsAg Non Reactive Non Reactive 09/23/2015 10:36 AM CDT [facility] HBc Antibody IgM Non Reactive Non Reactive 09/23/2015 10:36 AM CDT [facility] HCV Antibody Screen Non Reactive Non Reactive 09/23/2015 10:36 AM CDT [facility] HCV S/C Ratio 0.05 0.00 - 0.79 09/23/2015 10:36 AM T [facility] Comment: Uyjdaa-oh-usndra ratio (S/CO) <0.80: Non Reactive Blood BLOOD SPECIMEN / Unknown Lab Venipuncture / Unknown 09/21/2015 12:46 PM CDT 09/21/2015 12:58 PM CDT Narrative [facility] - 09/23/2015 10:36 AM CDT Non Reactive - Antibodies to Hepatitis C virus (HCV) were not detected, result does not exclude early acute HCV infection. us Martha Hernandez MD LAB - CHEMISTRY ORDERABLES F inal Result Performing Organization Address [facility]/ZIP Co de Phone Number [facility] [address] [place] [address] from Last 3 Months or Most Recently Relevant to Health Maintenance Insurance MEDICAID - OUT OF STATE [facility] MEDICAID - OUT OF STATE Member Subscriber Plan / Payer (Ef fective for All Dates) Name:DavidcésarverenicekillianEdwige Relation to Subscriber:Self Name:EDWIGE GO Payer ID:Not on file Group ID:Not on file Type:Medicaid Address: [address] MEDICAID - OUT OF [facility] MEDICAID - OUT OF STATE MEDICAID - OUT OF STATE MEDICAID - OUT OF [facility] MEDICAID - OUT OF [facility] MEDICAID - OUT OF [facility] MEDICAID - OUT OF STATE MEDICAID - OUT OF [facility] MEDICAID - OUT OF [facility] MEDICAID - OUT OF [facility] MEDICAID - OUT OF [facility] MEDICAID - OUT OF [facility] MEDICAID - OUT OF [facility] MEDICAID - OUT OF [facility] Member Subscriber Plan / Payer (Ef fective 2018-Present) Name:DaviddanyelEdwige Relation to Subscriber:Self Name:FERNANDO GO Payer ID:Not on file Group ID:Not on file Type:Medicaid Address: [address] MEDICAID - OUT OF STATE Member Subscriber Plan / Payer (Ef fective 2018-Present) Name:Edwige Cho Relation to Subscriber:Self Name:FERNANDO GO Payer ID:Not on file Group ID:Not on file Type:Medicaid Address: [address] [employer] [facility] MEDICAID - OUT OF [facility] [employer] [facility] Member Subscriber Plan / Payer (Ef fective 2019-Present) Name:Daviddanyel Alvarochristiano Relation to Subscriber:Self Name:FERNANDO GO Payer ID:[id number] (NAIC) Group ID:Not on file Type:Medicaid Managed Care Address: ATTN CLAIMS DEPARTMENT [address] [address] [place] [address] [employer] Care Address: [facility] CLAIMS DEPARTMENT [address] [place] [address] Advance Directives * Full Code (Latest Code Status on File) Date Activated Date Inactivated Comments 01/26/2017 12:20 AM 01/27/2017 3:23 PM * Full Code Date Activated Date Inactivated Comments 09/19/2015 8:41 PM 09/22/2015 5:37 PM Care Teams Tube Cutter Operator Relationship Specialty Start Date End Date Keanu Potter APRN-CNP [address] [phone] PCP - General 06/26/18 Keanu Potter APRN-CNP [address] [place] [phone] Nurse Practitioner 06/26/18
--- OUTSIDE RECORDS SUMMARY | 2024-09-20 20:10 | XMS_ITS | Encounter Summary ---
Author Organization [facility] Address [address] [place] [address] Care Team Providers Care Palliative Care Physician Name Role Phone Keanu Potter GUIDE-CONSUMER AFFAIRS SPECIALIST Primary Care Pro vider Keanu Potter GUIDE-CONSUMER AFFAIRS SPECIALIST Primary Care Pro vider Keanu Potter GUIDE-CONSUMER AFFAIRS SPECIALIST Unavailable Reason for Visit * Reason Onset Date Comments Diabetes 05/08/2018 Encounter Details Date Type Department Care Team (Late st Contact Info) Description 05/08/2018 Telephone [facility] - Endocrinology [address] [place] [address] Eldon Panchal APRN-CNP [address] [place] [address] Diabetes Social History Tobacco Use Types Packs/Day Years Used Date Smoking Tobacco: Never Smokeless Tobacco: Never Alcohol Use Standard Drinks/Week Comments No 0 (1 standard drink = 0.6 oz pur e alcohol) Comments No Sex and Gender Information Value Date Recorded Sex Assigned at Not on file Legal Sex Female 2:49 PM CDT Gender Identity Not on file Sexual Orientation Not on file documented as of this encounter Functional Status * Is person deaf or have serious hearing difficulty? Answer Date of Assessment Author No 01/25/2017 11:04 PM Shanice Maciel RN * Is person blind or have serious difficulty seeing? Answer Date of Assessment Author No 01/25/2017 11:04 PM Shanice Maciel RN * Does person have serious difficulty walking/climbing stairs? Answer Date of Assessment Author No 01/25/2017 11:04 PM Shanice Maciel RN * Does person have difficulty dressing/bathing? Answer Date of Assessment Author No 01/25/2017 11:04 PM Shanice Maciel RN * Does person have difficulty doing errands alone? Answer Date of Assessment Author No 01/25/2017 11:04 PM Shanice Maciel RN documented as of this encounter Mental Status * Does person have difficulty concentrating/remembering/making decisions? Answer Entry Date Author No 01/25/2017 11:04 PM Shanice Maciel RN documented in this encounter Miscellaneous Notes * Telephone Encounter - Jazzy Alvarado RN - 05/12/2018 1:51 PM CDT Received faxed blood sugars from [place] from 04/30/18 until 05/12/18. See flow sheet. * Telephone Encounter - Larissa Petersen RN - 05/12/2018 8:42 AM CDT Returned call to [facility] [phone]. No answer.left vm to call [employer] at [phone] and call office. * Telephone Encounter - May Alvarez RN - 05/08/2018 2:53 PM CDT After reviewing BG logs, patient's Lantus dose will be decreased from 40 units daily to 38 units daily. I tried contacting the patient's family, no one answered. I have also faxed a letter over to the school for communication as well. * Telephone Encounter - Larissa Petersen RN - 05/08/2018 11:56 AM CDT PA placed for insulin via [employer] documented in this encounter Plan of Treatment Upcoming Encounters Date Type Department Care Team (Late st Contact Info) Description 11/20/2024 8:45 AM CDT Appointment [facility] - Diabetes [address] [address] hCriss Hartley MD [address] [place] [phone] Fidelina Russo APRN-[address] [phone] documented as of this encounter Visit Diagnoses Not on filedocumented in this encounter Care Teams Palliative Care Physician Relationship Specialty Start Date End Date Keanu Potter APRN-CNP [address] [place] [phone] PCP - General Nurse Practitioner 09/15/15 06/25/18 Keanu Potter APRN-CNP [address] [place] [phone] PCP - General 06/26/18 Keanu Potter APRN-CNP [address] [place] [phone] Nurse Practitioner 06/26/18 documented as of this encounter
--- OUTSIDE RECORDS SUMMARY | 2024-09-20 20:10 | XMS_ITS | Encounter Summary ---
Author Organization [facility] [employer] Address [address] [facility] [facility] [place] [address] Care Team Providers Care Linux Network Administrator Name Role Phone Keanu Potter ORTHODONTIC TECHNICIAN ASSISTANT-PATTERN TECHNICIAN Primary Care Pro vider Keanu Potter ORTHODONTIC TECHNICIAN ASSISTANT-PATTERN TECHNICIAN Unavailable Reason for Referral * Radiology Services (Routine) - Closed Specialty Diagnoses / Procedures Referred By Renetta t Referred To Contact Diagnoses Liver disease Procedures US GUIDE NEEDLE PLACEMENT Yordy Bhandari MD [address] [place] [address] Phone: tel: fax: Referral ID Status Reason Start Date Expiration Date Visits Re quested Visits Authorized [id number] Closed 09/02/2023 09/01/2024 1 1 Reason for Visit * Reason Onset Date Comments Scheduling 09/02/2023 Encounter Details Date Type Department Care Team (Late st Contact Info) Description 09/02/2023 Telephone [facility] Pediatrics - Endocrinology [address] [place] [phone] Yordy Bhandari MD [address] [place] [phone] Scheduling Social History Tobacco Use Types Packs/Day Years Used Date Smoking Tobacco: Never Passive Smoke Exposure: Never Smokeless Tobacco: Never Alcohol Use Standard Drinks/Week Comments Not Asked 0 (1 standard drink = 0.6 oz [...] encounter Miscellaneous Notes * Telephone Encounter - Chiquis Shetty RN - 09/02/2023 10:48 AM CDT Pt speaks and reads Georgian. Confirmed date, time, order in [facility]. Prep letter sent to email [email or web address] Pended order for US guidance, labs, routing to provider. * Telephone Encounter - Romy Betancourt - 09/02/2023 9:57 AM CDT Scheduled Liver Biopsy with Dr Bhandari on 09/15/2023 at 845am. Please send prep work via email [email or web address] documented in this encounter Plan of Treatment Upcoming Encounters Date Type Department Care Team (Late st Contact Info) Description 11/20/2024 8:45 AM CDT Appointment [facility] Pediatrics - Diabetes Mgmt [address] [place] [address] Chriss Hartley MD [address] [place] [address] Fidelina Russo, ORTHODONTIC TECHNICIAN ASSISTANT-PATTERN TECHNICIAN [address] [place] [phone] documented as of this encounter Results * US GUIDE NEEDLE PLACEMENT (09/15/2023 10:05 AM CDT) Narrative [facility] - 09/19/2023 9:30 AM CDT See Notes. us Yordy Bhandari MD US ORDERABLES Final Result [facility] [address] [place] [phone] * (ABNORMAL) HEPATIC FUNCTION PANEL (09/15/2023 8:37 AM CDT) Protein Total 7.5 6.0 - 8.3 g/dL 024 9:37 AM CDT [facility] Comment:Hemolysis detected i n this specimen. Hemolysis is known to cause elevations in this analyte. Caution should be exercised in the interpretation of this result. Recommend repeat testing if clinically indicated. Albumin 3.5 3.4 - 5.0 g/dL 09/15/2023 9:37 AM CDT [facility] Bilirubin Total 0.4 0.2 - 1.2 mg/dL 09/2023 9:37 AM [facility] Bilirubin Conjugated 0.1 0.1 - 0.5 mg/dL 09/15/2023 9:37 AM [facility] Bilirubin Unconjugated 0.3 Unconjugated Bilirubin is a calculated value: Reference ranges have not been established. mg/dL 09/15/2023 9:37 AM [facility] Alkaline Phosphatase 76 40 - 150 U/L 09/15/2023 9:37 AM [facility] ALT 45 5 - 55 U/L 09/15/2023 9:37 AM [facility] AST 38(H) 5 - 34 U/L 09/15/2023 9:37 AM [facility] Comment:Hemolysis detected i n this specimen. Hemolysis is known to cause elevations in this analyte. Caution should be exercised in the interpretation of this result. Recommend repeat testing if clinically indicated. Albumin/Globulin Ratio 0.9(L) 1.1 - 2.3 09/15/2023 9:37 AM [facility] Blood BLOOD SPECIMEN / Unknown Venipuncture / Unknown 09/15/2023 8:37 AM CDT 09/15/2023 8:54 AM T us Yordy Bhandari MD LAB - CHEMISTRY ORDERABLES Final Result [address] [address], [facility] [phone] * (ABNORMAL) COMPREHENSIVE METABOLIC PANEL (09/15/2023 7:06 AM CDT) BUN 8 7 - 26 mg/dL 09/15/2023 7:52 AM [facility] Creatinine 0.42(L) 0.56 - 0.96 mg/dL 09/15/2023 7:52 AM [facility] Sodium 138 136 - 145 mmol/L 09/15/2023 7:52 AM [facility] Potassium 4.2 3.5 - 4.5 mmol/L 09/15/2023 7:52 AM [facility] Chloride 104 98 - 107 mmol/L 09/15/2023 7:52 AM [facility] CO2 26 22 - 29 mmol/L 09/15/2023 7:52 AM [facility] Glucose 194(H) 70 - 115 mg/dL 09/15/2023 7:52 AM [facility] Calcium 9.0 8.4 - 10.2 mg/dL 09/15/2023 7:52 AM [facility] Protein Total 7.6 6.0 - 8.3 g/dL 09/15/2023 7:52 AM [facility] Albumin 3.6 3.4 - 5.0 g/dL 09/15/2023 7:52 AM [facility] Bilirubin Total 0.4 0.2 - 1.2 mg/dL 09/15/2023 7:52 AM [facility] Alkaline Phosphatase 80 40 - 150 U/L 09/15/2023 7:52 AM [facility] ALT 47 5 - 55 U/L 09/15/2023 7:52 AM [facility] AST 29 5 - 34 U/L 09/15/2023 7:52 AM [facility] Anion Gap 8 6 - 16 09/15/2023 7:52 AM [facility] BUN/Creatinine Ratio 19 7 - 23 09/15/2023 7:52 AM [facility] Osmolality Calculated 290 275 - 295 mOsm/kg 09/15/2023 7:52 AM [facility] Albumin/Globulin Ratio 0.9(L) 1.1 - 2.3 09/15/2023 7:52 AM [facility] eGFR by CKD-EPI >90 >=90 mL/min/1.7 3 m2 09/15/2023 7:52 AM [facility] Blood BLOOD SPECIMEN / Unknown Lab Venipuncture / Unknown 09/15/2023 7:06 AM T 09/15/2023 7:12 AM [facility] us Yordy Bhandari MD LAB - CHEMISTRY ORDERABLES Final Result [facility] [address] [place] [address] [phone] * TYPE + SCREEN PANEL (09/15/2023 7:06 AM CDT) Antibody Screen NEG 8:05 AM T [facility] ABO Rh O POS 09/15/2023 8:05 AM T [facility] Blood Bank BLOOD SPECIMEN / Unknown Lab Venipuncture / Unknown 09/15/2023 7:06 AM CDT 09/15/2023 7:17 AM CDT us Yordy Bhandari MD LAB - BLOOD BANK ORDERABLES Letitia snow Result [facility] [address] [place] [address], [facility] [phone] * (ABNORMAL) CBC W DIFFERENTIAL (09/15/2023 7:06 AM CDT) WBC 9.3 4.0 - 10.7 x10E9/L 09/15/2023 7:21 AM [facility] RBC Count 4.94 3.90 - 5.20 x10E12/L 09/15/2023 7:21 AM [facility] Hemoglobin 13.2 11.9 - 15.8 g/dL 09/15/2023 7:21 AM [facility] Hematocrit 41.0 34.8 - 46.1 % 09/15/2023 7:21 AM [facility] MCV 83.0 80.0 - 98.0 fL 09/15/2023 7:21 AM [facility] MCH 26.7 26.7 - 33.6 pg 09/15/2023 7:21 AM [facility] MCHC 32.2 31.7 - 36.3 g/dL 09/15/2023 7:21 AM [facility] RDW-CV 13.6 11.3 - 14.8 % 09/15/2023 7:21 AM [facility] Platelet Count 234 150 - 420 x10E9/L 09/15/2023 7:21 AM [facility] MPV 11.8(H) 7.8 - 11.4 fL 09/15/2023 7:21 AM [facility] Neutrophil % 55.1 41.0 - 74.0 % 09/15/2023 7:21 AM [facility] Lymphocyte % 37.3 17.0 - 47.0 % 09/15/2023 7:21 AM [facility] Monocyte % 5.5 3.0 - 11.0 % 09/15/2023 7:21 AM [facility] Eosinophil % 1.5 0.0 - 7.0 % 09/15/2023 7:21 AM [facility] Basophil % 0.4 0.0 - 1.6 % 09/15/2023 7:21 AM [facility] Immature Granulocytes % 0.2 0.0 - 1.0 % 09/15/2023 7:21 AM [facility] Neutrophil Absolute 5.12 1.60 - 7.50 x10E9/L 09/15/2023 7:21 AM [facility] Lymphocyte Absolute 3.47 1.00 - 4.40 x10E9/L 09/15/2023 7:21 AM [facility] Monocyte Absolute 0.51 0.15 - 1.00 x10E9/L 09/15/2023 7:21 AM [facility] Eosinophil Absolute 0.14 0.00 - 0.60 x10E9/L 09/15/2023 7:21 AM [facility] Basophil Absolute 0.04 0.00 - 0.13 x10E9/L 09/15/2023 7:21 AM [facility] Blood BLOOD SPECIMEN / Unknown Lab Venipuncture / Unknown 09/15/2023 7:06 AM CDT 09/15/2023 7:12 AM [facility] us Yordy Bhandari MD LAB - HEMATOLOGY ORDERABLES Letitia snow Result [facility] [address] [place] [address], [facility] [phone] documented in this encounter Visit Diagnoses Diagnosis Liver disease- Primary Unspecified disorder of liver documented in this encounter Care Teams Linux Network Administrator Relationship Specialty Start Date End Date Keanu Potter APRN-CNP [address] [place] [phone] PCP - General 06/26/18 Keanu Potter APRN-CNP [address] [place] [phone] Nurse Practitioner 06/26/18 documented as of this encounter
--- OUTSIDE RECORDS SUMMARY | 2024-09-20 20:10 | XMS_ITS | Encounter Summary ---
Author Organization [facility] Address [address] [place] [address] Care Team Providers Care Assistant Tennis Coach Name Role Phone Keanu Potter SALESPERSON BURIAL NEEDS-DESKTOP MANAGER Primary Care Pro vider Keanu Potter SALESPERSON BURIAL NEEDS-DESKTOP MANAGER Primary Care Pro vider AbbeyKeanu cardona SALESPERSON BURIAL NEEDS-DESKTOP MANAGER Unavailable Reason for Visit * Reason Onset Date Comments Question 10/27/2015 Encounter Details Date Type Department Care Team (Late st Contact Info) Description 10/27/2015 Telephone [facility] Pediatrics - [address] [address] Radha Shell MD [facility] [place] [address] Question Social History Tobacco Use Types Packs/Day Years [...] difficulty? Answer Date of Assessment Author No 09/30/2015 2:14 PM CDT Triny Bush RN * Is person blind or have serious difficulty seeing? Answer Date of Assessment Author No 09/30/2015 2:14 PM CDT Triny Bush RN * Does person have serious difficulty walking/climbing stairs? Answer Date of Assessment Author No 09/30/2015 2:14 PM CDT Triny Bush RN * Does person have difficulty dressing/bathing? Answer Date of Assessment Author No 09/30/2015 2:14 PM CDT Triny Bush RN * Does person have difficulty doing errands alone? Answer Date of Assessment Author No 09/30/2015 2:14 PM CDT Triny Bush RN documented as of this encounter Mental Status * Does person have difficulty concentrating/remembering/making decisions? Answer Entry Date Author No 09/30/2015 2:14 PM CDT Triny Bush RN documented in this encounter Miscellaneous Notes * Telephone Encounter - Larissa Petersen RN - 11/13/2015 3:07 PM CDT Received faxed bgs from [employer]IV Hubbard. Bgs ranged from [phone]. Dian is decreasing her dose of prednisone * Telephone Encounter - Larissa Petersen RN - 10/31/2015 9:01 AM CDT Received bgs faxed from Haydee, school nurse. See doc flowsheet. Plan per injection protocol: Increase lunch and dinner to 5 units. Letter faxed to school. Called Haydee to review dose. She is sending letter home with family for increasing dose. She will review also with Dian new lunch and dinner doses. * Telephone Encounter - Larissa Petersen RN - 10/29/2015 12:17 PM CDT Called LIV Hubbard at [phone]. Confirmed school nurse had received new dosing information and dose was increased yesterday evening for dinner. * Telephone Encounter - Larissa Petersen RN - 10/28/2015 10:40 AM CDT Reviewed dosing with JORJE Juan. Will increase lunch and dinner to 4 units nightly. Letter sent to Haydee school nurse to update doses and notify family. Attempted to call office at [phone]. No answer. Faxed orders. Asked school nurse to call office to confirm receipt. Will follow up. * Telephone Encounter - Larissa Petersen RN - 10/27/2015 2:56 PM CDT Received faxed bgs from school nurse. See doc flowsheet. Will route to Dr. Hartley for further instruction. * Telephone Encounter - China Oshea RN - 10/27/2015 1:41 PM CDT Spoke to nurse Hubbard (received consent) informing her of plan: Liver numbers are improving. Will check again either or Tuesday this week and then plan to check weekly. Would start new medicine that we discussed at clinic visit- Azathioprine 100 mg daily for long termtreatment (sent to pharmacy). Continue Prednisone at 40mg for a total of 2 weeks as planned and then start weaning. Nurse will call when us when Banelly is down to 10 mg po daily of prednisone. Fax notes and orders to her at [phone] She is due for a physical. Can you do the physical when her on 11/11/15? Having a hard time with communication with health department. * Telephone Encounter - Larissa Petersen RN - 10/27/2015 1:32 PM CDT Spoke with Haydee ([phone]), school nurse to and reviewed bgs that were recorded at school. See doc flowsheet. Asked school nurse to have Dian bring in logbook to school and make a copy to fax to the diabetes nurse. Fax number provided. Haydee agreed to fax bgs tomorrow when Dian brought them in. Will review. Dian continues to require steroid therapy. * Telephone Encounter - Erin Sy - 10/27/2015 12:26 PM CDT School RN Haydee, requesting call back [phone]. documented in this encounter Plan of Treatment Upcoming Encounters Date Type Department Care Team (Late st Contact Info) Description 11/20/2024 8:45 AM CDT Appointment [facility] Pediatrics - Diabetes [address] [place] [address] Chriss Hartley MD [address] [place] [address] Fidelina Russo APRN-CNP [address] [place] [phone] documented as of this encounter Visit Diagnoses Not on filedocumented in this encounter Care Teams Assistant Tennis Coach Relationship Specialty Start Date End Date Keanu Potter APRN-CNP [address] [place] [phone] PCP - General Nurse Practitioner 09/15/15 06/25/18 Keanu Potter APRN-CNP [address] [place] [phone] PCP - General 06/26/18 Keanu Potter APRN-CNP [address] [place] [phone] Nurse Practitioner 06/26/18 documented as of this encounter
--- OUTSIDE RECORDS SUMMARY | 2024-09-20 20:10 | XMS_ITS | Encounter Summary ---
Author Organization [facility] Address [address] [facility] [place] [address] Care Team Providers Care Area Sales Manager Name Role Phone Keanu Potter ONLINE TRADER-TRUCK CAR AND BUS CLEANER Primary Care Pro vider Keanu Potter ONLINE TRADER-TRUCK CAR AND BUS CLEANER Primary Care Pro vider AbbeyKeanu cardona ONLINE TRADER-TRUCK CAR AND BUS CLEANER Unavailable Reason for Visit * Reason Onset Date Comments Insurance Issue/question 05/18/2018 Encounter Details Date Type Department Care Team (Late st Contact Info) Description 05/18/2018 Telephone [facility] Pediatrics - Diabetes [address] [address] Chriss Hartley MD [address] [place] [phone] Insurance Issue/question Social History Tobacco Use Types Packs/Day Years [...] Telephone Encounter - Jazzy Alvarado RN - 05/19/2018 2:22 PM CDT Received faxed blood sugars from Nurse Soto, see flow sheet. No pattern noted, no changes recommended. * Telephone Encounter - Jazzy Alvarado RN - 05/19/2018 10:19 AM CDT Received call and fax from Virginia Soto RN in regards to Dian not being able to fill insulin. I called [facility] and was told that Dove no longer the insurance but is now covered by [place] Medicaid. Humalog insulin is now covered rather than Admelog. I called Nurse Prior to let her know that insulin is ready at [facility], she will make Dian aware. * Telephone Encounter - Carlos Still RN - 05/18/2018 10:27 AM CDT I returned call to nurse Rosalind at [facility] [phone]. Reports pt's Medicaid has lapsed and she is concerned about ability to get insulin. Parents were to go to the medicaid office 2 days ago to reinstate. I called [facility], spoke with Bubba, reports pt picked up Basaglar on 05/04 and hasn't picked up Humalog or Admelog since 11/24- I think this must be an error. He re- ran Admelog and still shows pt's Medicaid is inactive. I called Rosalind and asked her to have Dian find out if parents went to medicaid office. She is to update us tomorrow. Rosalind reports parents will not answer their phone while working and they work until 5pm. I discussed the following plan with Rosalind: I will leave message with Vero Arroyo LCSW, and ask her to look pt us in [place] Medicaid system (detailed message left for [facility]). Discussed potential for card care program if there is an emergent insulin supply issue- explained to her that this would need to be pre-arranged and M-F. Could perhaps send Humalog coupon to pharmacy, though may have exceeded lifetime use on that. Rosalind agreed and will touch base tomorrow, will let her know if I find something else out today. documented in this encounter Plan of Treatment Upcoming Encounters Date Type Department Care Team (Late st Contact Info) Description 11/20/2024 8:45 AM CDT Appointment [facility] Pediatrics - Diabetes [address] [place] [address] Chriss Hartley MD [address] [place] [address] Fidelina Russo, ONLINE TRADER-TRUCK CAR AND BUS CLEANER [address] [place] [phone] documented as of this encounter Visit Diagnoses Not on filedocumented in this encounter Care Teams Area Sales Manager Relationship Specialty Start Date End Date Keanu Potter APRN-CNP [address] [place] [phone] PCP - General Nurse Practitioner 09/15/15 06/25/18 Keanu Potter APRN-CNP [address] [place] [phone] PCP - General 06/26/18 Keanu Potter APRN-CNP [address] [place] [phone] Nurse Practitioner 06/26/18 documented as of this encounter
--- OUTSIDE RECORDS SUMMARY | 2024-09-20 20:10 | XMS_ITS | Encounter Summary ---
Author Organization [facility] Address [address] [place] [address] Care Team Providers Care Advanced Practice Registered Nurse Name Role Phone Keanu Potter FILTROSE CRUSHER-ENERGY DIRECTOR Primary Care Pro vider Keanu Potter FILTROSE CRUSHER-ENERGY DIRECTOR Primary Care Pro vider AbbeyKeanu cardona FILTROSE CRUSHER-ENERGY DIRECTOR Unavailable Encounter Details Date Type Department Care Team (Late st Contact Info) Description 11/04/2015 Telephone [facility] Pediatrics - Diabetes [address] [address] Chriss Hartley MD [address] [place] [address] Social History Tobacco Use Types Packs/Day Years [...] Telephone Encounter - Larissa Petersen RN - 11/28/2015 2:48 PM CDT bgs faxed over from Nurse Hubbard. See doc flowsheet Plan per injection protocol Increase breakfast to 8 units of Humalog, increase lunch to 9 units of Humalog and increase dinner to 9 units of Humalog. Reviewed with Nurse Hubbard. Letter sent home to family. * Telephone Encounter - Larissa Petersen RN - 11/24/2015 11:27 AM CDT Called and spoke with LIV Hubbard. Reviewed increase in Humalog/Novolog to breakfast-7 units, lunch 8-units and dinner 8-units. She verbalized understanding. Letter faxed with updates to [phone].Asked Haydee to fax bgs over at the end of the week for review. She agreed. Steroid therapy to be fi nished December 10. * Telephone Encounter - Larissa Petersen RN - 11/18/2015 3:26 PM CDT Received faxed bgs from [facility] nurse. See doc flowsheet * Telephone Encounter - Larissa Petersen RN - 11/13/2015 3:26 PM CDT Haydeechanning home nurse called to review bgs from current week. bgs range from [phone]. Dian is decreasing Prednisone dose today to 20 mg and she is off school until lnext Tuesday, . Dian has had negative ketones when checked at school. Due to lack of communication with family and decreased prednisone dose, Will leave doses unchanged until we can review bg with Haydee on Tuesday. * Telephone Encounter - Larissa Petersen RN - 11/10/2015 3:16 PM CDT [facility] see doc [facility]. Plan per injection protocol: Increase breakfast dose to 5 units. Increase lunch dose to 7 units Increase dinner dose 7 units. Letter sent to school reflecting changes. Prednisone dose due to decrease to 20 mg on Tuesday. Haydee plans to send blood sugars to office on . * Telephone Encounter - Jazzy Alvarado RN - 11/07/2015 1:53 PM CDT [facility] reviewing recent blood sugars faxed (see documentation flow sheet) Current set doses: Breakfast 4 units Lunch 6 units Dinner 6 units No changes made at this time due to changes made recently. The [facility] nurse to fax blood sugars again next week for review. * Telephone Encounter - Carlos Still RN - 11/04/2015 12:16 PM CDT I returned call to Haydee [facility] nurse. [phone] F [phone]. See doc flow sheet for bg review. Cuurent set doses: Breakfast 3 units Lunch 5 units Dinner 5 units Per injection protocol: Increase set doses by 1 unit each. No change in correction or Lantus. Will fax letters x2 (one for nurse, 1 for family) documented in this encounter Plan of Treatment Upcoming Encounters Date Type Department Care Team (Late st Contact Info) Description 11/20/2024 8:45 AM CDT Appointment [facility] Pediatrics - Diabetes [address] [address] Chriss Hartley MD [address] [place] [phone] Fidelina Russo APRN-ENERGY DIRECTOR [address] [place] [phone] documented as of this encounter Visit Diagnoses Not on filedocumented in this encounter Care Teams Advanced Practice Registered Nurse Relationship Specialty Start Date End Date Keanu Potter APRN-CNP [address] [place] [phone] PCP - General Nurse Practitioner 09/15/15 06/25/18 Keanu Potter APRN-CNP [address] [place] [phone] PCP - General 06/26/18 Keanu Potter, JASWANT-ENERGY DIRECTOR [address] [place] [phone] Nurse Practitioner 06/26/18 documented as of this encounter
--- OUTSIDE RECORDS SUMMARY | 2024-09-20 20:10 | XMS_ITS | Encounter Summary ---
Author Organization [facility] Address [address] [place] [address] Care Team Providers Care Job Change Crew Member Name Role Phone Keanu Potter HUMAN RESOURCES PROJECT MANAGER-COMMUNITY HEALTH COUNSELOR Primary Care Pro vider Keanu Potter HUMAN RESOURCES PROJECT MANAGER-COMMUNITY HEALTH COUNSELOR Primary Care Pro vider AbbeyKeanu cardona HUMAN RESOURCES PROJECT MANAGER-COMMUNITY HEALTH COUNSELOR Unavailable Encounter Details Date Type Department Care Team (Late st Contact Info) Description 11/08/2017 Telephone [facility] Pediatrics - Diabetes [address] [address] Larissa Petersen RN Social History Tobacco Use Types Packs/Day Years [...] Telephone Encounter - Larissa Petersen RN - 05/10/2018 11:24 AM CDT Received denial for insulin. Attempted PA and received denial stating that patient was not active. Verified with [employer] that patient is no longer active as of 05/07/2018. Called family with assistance of [facility] chilean interpreters. Called both numbers without success. Left vm on [phone] that [employer] insurance is inactive and the family needs to call and reinstate the applications. Asked them to also call office immediately if they are out of insulin. [employer] stated she left her number and instructions on how to call her for assistance with interpreting. Called school nurse and asked her to send note home asking family to call office as soon as possible. Reviewed how to call office and how to call [employer] for assistance. * Telephone Encounter - Larissa Petersen RN - 11/09/2017 1:36 PM CDT School nurse called when Dian came in for lunch. She reports lows are when she gets on the bus. She has checked her self and treated herself. Asked her to have parent call us. She stated mother will call tomorrow. Plan per injection protocol; Decrease lunch dose from 72 units to 66 units. Spoke with Nurse Prior and updated her on dosing. Dian was already dosed today. Asked Nurse Prior to check Dian's blood sugar before dismissal and to make sure she has treatment for a low with her for bus ride home. She agreed. * Telephone Encounter - Larissa Petersen RN - 11/09/2017 8:35 AM CDT Received call from Nurse Prior to discuss blood sugars. She has Dian's blood sugar log from home. Dian had an additional low of 56 Tuesday night but no further. I asked how she communicates withfamily as I have attempted calling many times with interpreters and have left numerous voicemails without any return contact. She stated she sends messages home with Dian and has her read them to family. Voiced concerns as Dian is a minor. Nurse Prior plans to have Dian come into office atlunch and communicate with her and me over the phone. Will discuss with her importance of parents communicating with us . Will also attempt to call parents again today. * Telephone Encounter - Larissa Petersen RN - 11/08/2017 3:45 PM CDT Received recorded bgs. From school nurse. Lows noted written in margin. Called home numbers with [employer]. No answer. Left vm for parents to call office regarding low blood sugars. Expressed urgency in vm for calling. Faxed letter to school requesting family call office and asked school nurse to fax updated bgs. School fax ([phone]) documented in this encounter Plan of Treatment Upcoming Encounters Date Type Department Care Team (Late st Contact Info) Description 11/20/2024 8:45 AM CDT Appointment [facility] Pediatrics - Diabetes Mgmt [address] [place] [phone] Chriss Hartley MD [address] [place] [phone] Fidelina Russo, HUMAN RESOURCES PROJECT MANAGER-COMMUNITY HEALTH COUNSELOR [address] [place] [phone] documented as of this encounter Visit Diagnoses Not on filedocumented in this encounter Care Teams Job Change Crew Member Relationship Specialty Start Date End Date Keanu Potter APRN-CNP [address] [place] [phone] PCP - General Nurse Practitioner 09/15/15 06/25/18 Keanu Potter APRN-CNP [address] [place] [phone] PCP - General 06/26/18 Keanu Potter APRN-CNP [address] [place] [phone] Nurse Practitioner 06/26/18 documented as of this encounter
--- OUTSIDE RECORDS SUMMARY | 2024-09-20 20:10 | XMS_ITS | Encounter Summary ---
Author Organization [facility] Address [address] [place] [address] Care Team Providers Care Party Plan Sales Unit Advisor Name Role Phone Keanu Potter TAR PROCESSING TECHNICIAN-FUNNEL SETTER Primary Care Pro vider Keanu Potter TAR PROCESSING TECHNICIAN-FUNNEL SETTER Primary Care Pro vider Keanu Potter TAR PROCESSING TECHNICIAN-FUNNEL SETTER Unavailable Reason for Visit * Reason Onset Date Comments Blood Sugar Problem 06/02/2018 Encounter Details Date Type Department Care Team (Late st Contact Info) Description 06/02/2018 Telephone [facility] Pediatrics - Diabetes [address] [place] [address] Eldon Panchal APRN-CNP [address] [place] [phone] Blood Sugar Problem Social History Tobacco Use Types Packs/Day Years [...] of Assessment Author No 01/25/2017 11:04 PM Shancie Maciel RN * Does person have difficulty [...] Telephone Encounter - Jazzy Alvarado RN - 06/16/2018 4:07 PM CDT Received faxed blood sugars from Nurse Prior for Dian. Blood sugars are from 06/04/18 until 06/16/18. See flow sheet. No changes recommended with blood sugars reported. * Telephone Encounter - Carlos Still RN - 06/06/2018 2:16 PM CDT Returned call to Carlos Larry, friend/neighbor of Dian. She will be attending the class trip to [facility] with her daughter and has agreed to be Dian's supervising therapy aide. She is familiar with much of her diabetes care, was here initially to learn about insulin at diagnosis, and needs a survival skills class. Scheduled for 829am on June 26, as she is only off work on Mondays, works 2 jobs. [facility] Room is reserved, Carlos will meet diabetes nurse in clinic. * Telephone Encounter - May Alvarez RN - 06/02/2018 2:55 PM CDT School RN sent over BG logs. See doc flow sheet. No changes made at this time. * Telephone Encounter - Carlos Still RN - 06/02/2018 2:54 PM CDT Called Carlos Larry [phone], left a detailed message to call me. documented in this encounter Plan of Treatment Upcoming Encounters Date Type Department Care Team (Late st Contact Info) Description 11/20/2024 8:45 AM CDT Appointment [facility] Pediatrics - Diabetes [address] [address] Chriss Hartley MD [address] [place] [address] Fidelina Russo APRN-FUNNEL SETTER [address] [place] [phone] documented as of this encounter Visit Diagnoses Not on filedocumented in this encounter Care Teams Party Plan Sales Unit Advisor Relationship Specialty Start Date End Date Keanu Potter APRN-CNP [address] [place] [phone] PCP - General Nurse Practitioner 09/15/15 06/25/18 Keanu Potter APRN-CNP [address] [place] [phone] PCP - General 06/26/18 Keanu Potter APRN-ROBERT [address] [place] [phone] Nurse Practitioner 06/26/18 documented as of this encounter
--- OUTSIDE RECORDS SUMMARY | 2024-09-20 20:10 | XMS_ITS | Encounter Summary ---
Author Organization [facility] Address [address] [facility] [place] [address] Care Team Providers Care Leasing Sales Consultant Name Role Phone Keanu Potter ENERGY CONSERVATION TECHNICIAN-HAIRSPRING II INSPECTOR Primary Care Pro vider Keanu Potter ENERGY CONSERVATION TECHNICIAN-HAIRSPRING II INSPECTOR Unavailable Encounter Details Date Type Department Care Team (Late st Contact Info) Description 10/19/2019 Telephone [facility] - [address] [address] Yordy Bhandari MD [address] [place] [address] Social History Tobacco Use Types Packs/Day Years Used Date Smoking Tobacco: Never Smokeless Tobacco: Never Alcohol Use Standard Drinks/Week Comments No 0 (1 standard drink = 0.6 oz pur e alcohol) Comments No Sex and Gender Information Value Date Recorded Sex Assigned at Not on file Legal Sex Female 2:49 PM CDT Gender Identity Not on file Sexual Orientation Not on file COVID-19 Exposure Response Date Recorded In the last month, have you been in contact with someone who was confirmed or suspected to have Coronavirus / COVID-19? No / Unsure 09/24/2019 10:12 AM CDT documented as of this encounter Functional Status [...] encounter Miscellaneous Notes * Telephone Encounter - Yasmeen Danielson - 10/19/2019 3:09 PM CDT Someone called for this pt requesting a professor of apologetics. Informed them that I would have to call them back with an band instrument repairer. They understood, and I called [employer] and called them back. Spoke with Mom via [employer] band instrument repairer Maame. Mom said that she received a call a few weeks ago stating that this pt needs to start taking vitamins, but no script was ever called in for them. Spoke witha nurse, then informed Mom that she can buy the multivitamin with iron OTC. Mom was confused because she was told it would be sent to the pharmacy after pt's bloodwork came back and something was low. Informed Mom once more that it is just an OTC vitamin, and Mom expressed understanding. She willhave the pharmacy help her find a good multivitamin with iron. documented in this encounter Plan of Treatment Upcoming Encounters Date Type Department Care Team (Late st Contact Info) Description 11/20/2024 8:45 AM CDT Appointment [facility] Pediatrics - Diabetes Mgmt [address] [place] [address]. [place] [address] Chriss Hartley MD [address] [place] [address] Fidelina Russo APRN-HAIRSPRING II INSPECTOR [address] [place] [phone] documented as of this encounter Visit Diagnoses Not on filedocumented in this encounter Care Teams Leasing Sales Consultant Relationship Specialty Start Date End Date Keanu Potter APRN-CNP [address] [place] [phone] PCP - General 06/26/18 Keanu Potter APRN-CNP [address] [place] [phone] Nurse Practitioner 06/26/18 documented as of this encounter
--- OUTSIDE RECORDS SUMMARY | 2024-09-20 20:10 | XMS_ITS | Encounter Summary ---
Author Organization [facility] Address [address] [facility] [place] [address] Care Team Providers Care Cutter Grinder Name Role Phone Keanu Potter CLIENT SERVICE ADMINISTRATOR-SWITCH OPERATOR Primary Care Pro vider Keanu Potter CLIENT SERVICE ADMINISTRATOR-SWITCH OPERATOR Primary Care Pro vider Keanu Potter CLIENT SERVICE ADMINISTRATOR-SWITCH OPERATOR Unavailable Reason for Visit * Reason Onset Date Comments General 06/01/2018 Encounter Details Date Type Department Care Team (Late st Contact Info) Description 06/01/2018 Telephone [facility] Pediatrics - Diabetes [id number] [place] [address] Eldon Panchal APRN-CNP [address] [place] [phone] General Social History Tobacco Use Types Packs/Day Years [...] of Assessment Author No 01/25/2017 11:04 PM Sahnice Maciel RN * Does person have difficulty doing errands alone? Answer Date of Assessment Author No 01/25/2017 11:04 PM Shanice Maciel RN documented as of this encounter Mental Status * Does person have difficulty concentrating/remembering/making decisions? Answer Entry Date Author No 01/25/2017 11:04 PM Shanice Maciel RN documented in this encounter Miscellaneous Notes * Telephone Encounter - Carlos Still RN - 06/01/2018 10:24 AM CDT I returned call to Nurse Boyer Prior. Discussed the school field trip to [facility] [facility] planned -July 10. There is no school nurse planning to attend. Nurse was not aware Dian was going on the field trip until I left her a message last week. Per nurse, a family friend, Carlos Larry, will be attending the field trip [phone] PLAN: Will contact Carlos for evaluation of diabetes knowledge and training as needed. [phone] Nurse Prior to fax us blood sugars by June 23 Will plan to discuss dosing changes and fax [place] careplan on TuesdayJune 27 Called Carlos Larry [phone], left a detailed message to call me. documented in this encounter Plan of Treatment Upcoming Encounters Date Type Department Care Team (Late st Contact Info) Description 11/20/2024 8:45 AM CDT Appointment [facility] Pediatrics - Diabetes Mgmt [address] [place] [address]. [place] [address] Chriss Hartley MD [address] [place] [address] Fidelina Russo APRN-SWITCH OPERATOR [address] [place] [phone] documented as of this encounter Visit Diagnoses Not on filedocumented in this encounter Care Teams Cutter Grinder Relationship Specialty Start Date End Date Keanu Potter APRN-CNP [address] [place] [phone] PCP - General Nurse Practitioner 09/15/15 06/25/18 Keanu Potter APRN-CNP [address] [place] [phone] PCP - General 06/26/18 Keanu Potter APRN-CNP [address] [place] [phone] Nurse Practitioner 06/26/18 documented as of this encounter
--- OUTSIDE RECORDS SUMMARY | 2024-09-20 20:10 | XMS_ITS | Encounter Summary ---
Author Organization [facility] Address [address] [place] [address] Care Team Providers Care Farmworker Livestock Name Role Phone Keanu Potter TIN FLOPPER-MENTAL HEALTH ASSOCIATE Primary Care Pro vider Keanu Potter TIN FLOPPER-MENTAL HEALTH ASSOCIATE Unavailable Encounter Details Date Type Department Care Team (Late st Contact Info) Description 03/05/2021 Telephone [facility] Pediatrics - Diabetes [address] [address] Chriss Hartley MD [address] [place] [address] Social History Tobacco Use Types Packs/Day Years [...] have Coronavirus / COVID-19? No / Unsure 03/05/2021 12:20 PM BAR FINISH OPERATOR documented as of this encounter Functional Status [...] Shanice Maciel RN documented in this encounter Plan of Treatment Upcoming Encounters Date Type Department Care Team (Late st Contact Info) Description 11/20/2024 8:45 AM CDT Appointment [facility] - Diabetes [address] [address] Chriss Hartley MD [address] [place] [address] Fidelina Russo APRN-MENTAL HEALTH ASSOCIATE [address] [place] [phone] documented as of this encounter Visit Diagnoses Not on filedocumented in this encounter Care Teams Farmworker Livestock Relationship Specialty Start Date End Date Keanu Potter APRN-CNP [address] [place] [phone] PCP - General 06/26/18 Keanu Potter, JASWANT-ROBERT [address] [place] [phone] Nurse Practitioner 06/26/18 documented as of this encounter
--- OUTSIDE RECORDS SUMMARY | 2024-09-20 20:10 | XMS_ITS | Encounter Summary ---
Author Organization [facility] Address [address] [facility] [place] [address] Care Team Providers Care Field Adjuster Name Role Phone Keanu Potter PAYROLL ASSOCIATE-CERTIFIED TUMOR REGISTRAR Primary Care Pro vider Keanu Potter PAYROLL ASSOCIATE-CERTIFIED TUMOR REGISTRAR Primary Care Pro vider AbbeyKeanu cardona PAYROLL ASSOCIATE-CERTIFIED TUMOR REGISTRAR Unavailable Encounter Details Date Type Department Care Team (Late st Contact Info) Description 01/30/2016 Telephone [facility] Pediatrics - [address] [address] Radha Shell MD [address] [place] [phone] Social History Tobacco Use Types Packs/Day Years [...] Author No 09/30/2015 2:14 PM CDT Triny Fitzpatrick RN documented in this encounter Miscellaneous Notes * Telephone Encounter - Larissa Petersen RN - 02/27/2016 12:46 PM SIEBEL CONSULTANT Called Nurse Hubbard At 1114: [phone] to review bgs. See doc flowsheet Reviewed dosing plan with Gordo Panchal APRN who suggested to increase Lunch dose to 32 units. letter sent to school to reflect changes. Attempted to return call to Nurse Hubbard at 1252 to review dose changes. No answer. Current dosing: Lantus 15 units Humalog: Breakfast: 24 units Lunch: 32 units Dinner: 28 units Snack: 4 units EL CONSULTANT * Telephone Encounter - Larissa Petersen RN - 02/13/2016 10:26 AM SIEBEL CONSULTANT Called Nurse Hubbard [phone] to review bgs from this week. See doc flowsheet Afternoon and evening bgs are elevated. Nurse to ask Dian if she is snacking in the afternoon and how much she is taking. She will call back. Lunch bg 345, Reviewed with Dr. Hartley. Plan is to increase Humalog meal dose to 24 units. Letter sent to school reflecting changes. EL CONSULTANT EL CONSULTANT EL CONSULTANT EL CONSULTANT * Telephone Encounter - Larissa Petersen RN - 02/06/2016 1:18 PM SIEBEL CONSULTANT Dian called to report bgs. See doc flowsheet Per Gordo Panchal APRN-ROBERT Increase all meals to 22 units. Reviewed with Dian and reviewed pen use instructions. Asked Ceciliademetrice to call Dr. Erickson and page her if she has multiple lows. She agreed. Asked her to call Tuesday to review. EL CONSULTANT * Telephone Encounter - Larissa Petersen RN - 02/04/2016 1:43 PM SIEBEL CONSULTANT Family does not speak Gambian. They have been using Dian to report her bgs. Dian called to report her bgs. See doc flowsheet Per injection protocol: Increase breakfast to 16 units Increase lunch and dinner to 19 units. Ceciliademetrice read back the doses to me at the end of the conversation to confirm. Asked her to call back on Tuesday to report bgs again. She stated that she had been checking her ketone levels and they have been negative. EL CONSULTANT * Telephone Encounter - Radha Shell MD - 01/30/2016 12:48 PM SIEBEL CONSULTANT Please remind family that Dian was to have follow up labs this week. Thanks! EL CONSULTANT documented in this encounter Plan of Treatment Upcoming Encounters Date Type Department Care Team (Late st Contact Info) Description 11/20/2024 8:45 AM CDT Appointment [facility] Pediatrics - Diabetes Mgmt [address] [place] [address]. [place] [address] Chriss Hartley MD [address] [place] [address] Fidelina Russo APRN-CERTIFIED TUMOR REGISTRAR [address] [place] [phone] documented as of this encounter Visit Diagnoses Not on filedocumented in this encounter Care Teams Field Adjuster Relationship Specialty Start Date End Date Keanu Potter APRN-CNP [address] [place] [phone] PCP - General Nurse Practitioner 09/15/15 06/25/18 Keanu Potter APRN-CNP [address] [place] [phone] PCP - General 06/26/18 Keanu Potter APRN-CNP [address] [place] [phone] Nurse Practitioner 06/26/18 documented as of this encounter
[2024-09-20 20:59] VITALS: BP 146/71; PULSE 101; RESP 16; TEMP 36.9; O2SAT 100
[2024-09-20 22:30] VITALS: BP 119/65; PULSE 98; RESP 20; O2SAT 100
--- OUTSIDE RECORDS SUMMARY | 2024-09-21 00:28 | XMS_ITS | Encounter Summary ---
Author Organization [facility] Address [address] [place] [address] Care Team Providers Care Dyer Assistant Name Role Phone Keanu Potter INSTRUMENTATION CONTROLS ENGINEER-WINE CONSULTANT Primary Care Pro vider Keanu Potter INSTRUMENTATION CONTROLS ENGINEER-WINE CONSULTANT Unavailable Encounter Details Date Type Department Care Team (Late st Contact Info) Description 10/19/2019 Telephone [facility] - [address] [address] Yordy Bhandari MD [address] [place] [address] Social History Tobacco Use Types Packs/Day Years [...] Someone called for this pt requesting a caterer's aide. Informed them that I would have to call them back with an parcel post officer. They understood, and I called [employer] and called them back. Spoke with Mom via [employer] parcel post officer Maame. Mom said that she received a [...] [facility] Pediatrics - Diabetes Mgmt [address] [place] [address]. [place] [address] Chriss Hartley MD [address] [place] [address] Fidelina Russo APRN-WINE CONSULTANT [address] [place] [phone] documented as of this encounter Visit Diagnoses Not on filedocumented in this encounter Care Teams Dyer Assistant Relationship Specialty Start Date End Date Keanu Potter APRN-CNP [address] [place] [phone] PCP - General 06/26/18 Keanu Potter APRN-CNP [address] [place] [phone] Nurse Practitioner 06/26/18 documented as of this encounter
--- OUTSIDE RECORDS SUMMARY | 2024-09-21 00:29 | XMS_ITS | Encounter Summary ---
Author Organization [facility] [email or web address] Address [address] [place] [address] Care Team Providers Care Machine Setup Operator Name Role Phone Keanu Potter CLERICAL METHODS ANALYST-WAFER FABRICATION OPERATOR Primary Care Pro vider Keanu Potter CLERICAL METHODS ANALYST-WAFER FABRICATION OPERATOR Unavailable Reason for Referral * Radiology Services (Routine) - Closed Specialty Diagnoses / Procedures Referred By Renetta t Referred To Contact Diagnoses Liver disease Procedures US GUIDE NEEDLE PLACEMENT Yordy Bhandari MD [address] [place] [address] Phone: tel: fax: Referral ID Status Reason Start Date Expiration Date Visits Re quested Visits Authorized [id number] Closed 09/02/2023 09/01/2024 1 1 Reason for Visit * Reason Onset Date Comments Scheduling 09/02/2023 Encounter Details Date Type Department Care Team (Late st Contact Info) Description 09/02/2023 Telephone [facility] - Endocrinology [address] [place] [phone] Yordy Bhandari MD [address] [place] [phone] Scheduling Social History Tobacco Use Types Packs/Day [...] 10:48 AM CDT Pt speaks and reads Portuguese. Confirmed date, time, order in [facility]. Prep letter sent to email [email or web address] Pended order for US guidance, labs, routing to provider. * Telephone Encounter - Romy Betancourt - 09/02/2023 9:57 AM CDT Scheduled Liver Biopsy with Dr Bhandari on 09/15/2023 at 845am. Please send prep work via email [email or web address] documented in this encounter Plan of Treatment Upcoming Encounters Date Type Department Care Team (Late st Contact Info) Description 11/20/2024 8:45 AM CDT Appointment [facility] - Diabetes Mgmt [address] [place] [phone] Chriss Hartley MD [address] [place] [phone] Fidelina Russo, CLERICAL METHODS ANALYST-WAFER FABRICATION OPERATOR [address] [place] [phone] documented as of this encounter Results * US GUIDE NEEDLE PLACEMENT (09/15/2023 10:05 AM CDT) Narrative [facility] - 09/19/2023 9:30 AM CDT See Notes. us Yordy Bhandari MD US ORDERABLES Final Result [facility] [address] [place] [phone] * (ABNORMAL) HEPATIC FUNCTION PANEL (09/15/2023 8:37 AM CDT) Protein Total 7.5 6.0 - 8.3 g/dL 024 9:37 AM CDT [facility] Comment:Hemolysis detected i n this specimen. Hemolysis is known to cause elevations in this analyte. Caution should be exercised in the interpretation of this result. Recommend repeat testing if clinically indicated. Albumin 3.5 3.4 - 5.0 g/dL 09/15/2023 9:37 AM CDT [facility] Bilirubin Total 0.4 0.2 - 1.2 mg/dL 09/2023 9:37 AM [facility] Bilirubin Conjugated 0.1 0.1 - 0.5 mg/dL 09/15/2023 9:37 AM [facility] Bilirubin Unconjugated 0.3 Unconjugated Bilirubin is a calculated value: Reference ranges have not been established. mg/dL 09/15/2023 9:37 AM [facility] Alkaline Phosphatase 76 40 - 150 U/L 09/15/2023 9:37 AM [facility] ALT 45 5 - 55 U/L 09/15/2023 9:37 AM [facility] AST 38(H) 5 - 34 U/L 09/15/2023 9:37 AM [facility] Comment:Hemolysis detected i n this specimen. Hemolysis is known to cause elevations in this analyte. Caution should be exercised in the interpretation of this result. Recommend repeat testing if clinically indicated. Albumin/Globulin Ratio 0.9(L) 1.1 - 2.3 09/15/2023 9:37 AM [facility] Blood BLOOD SPECIMEN / Unknown Venipuncture / Unknown 09/15/2023 8:37 AM CDT 09/15/2023 8:54 AM T us Yordy Bhandari MD LAB - CHEMISTRY ORDERABLES Final Result [address] [address], [facility] [phone] * (ABNORMAL) COMPREHENSIVE METABOLIC PANEL (09/15/2023 7:06 AM CDT) BUN 8 7 - 26 mg/dL 09/15/2023 7:52 AM [facility] Creatinine 0.42(L) 0.56 - 0.96 mg/dL 09/15/2023 7:52 AM [facility] Sodium 138 136 - 145 mmol/L 09/15/2023 7:52 AM [facility] Potassium 4.2 3.5 - 4.5 mmol/L 09/15/2023 7:52 AM [facility] Chloride 104 98 - 107 mmol/L 09/15/2023 7:52 AM [facility] CO2 26 22 - 29 mmol/L 09/15/2023 7:52 AM [facility] Glucose 194(H) 70 - 115 mg/dL 09/15/2023 7:52 AM [facility] Calcium 9.0 8.4 - 10.2 mg/dL 09/15/2023 7:52 AM [facility] Protein Total 7.6 6.0 - 8.3 g/dL 09/15/2023 7:52 AM [facility] Albumin 3.6 3.4 - 5.0 g/dL 09/15/2023 7:52 AM [facility] Bilirubin Total 0.4 0.2 - 1.2 mg/dL 09/15/2023 7:52 AM [facility] Alkaline Phosphatase 80 40 - 150 U/L 09/15/2023 7:52 AM [facility] ALT 47 5 - 55 U/L 09/15/2023 7:52 AM [facility] AST 29 5 - 34 U/L 09/15/2023 7:52 AM [facility] Anion Gap 8 6 - 16 09/15/2023 7:52 AM [facility] BUN/Creatinine Ratio 19 7 - 23 09/15/2023 7:52 AM [facility] Osmolality Calculated 290 275 - 295 mOsm/kg 09/15/2023 7:52 AM [facility] Albumin/Globulin Ratio 0.9(L) 1.1 - 2.3 09/15/2023 7:52 AM [facility] eGFR by CKD-EPI >90 >=90 mL/min/1.7 3 m2 09/15/2023 7:52 AM [facility] Blood BLOOD SPECIMEN / Unknown Lab Venipuncture / Unknown 09/15/2023 7:06 AM T 09/15/2023 7:12 AM [facility] us Yordy Bhandari MD LAB - CHEMISTRY ORDERABLES Final Result [facility] [address] [place] [address] [email or web address]] [phone] * TYPE + SCREEN PANEL (09/15/2023 7:06 AM CDT) Antibody Screen NEG 8:05 AM T [facility] ABO Rh O POS 09/15/2023 8:05 AM T [facility] Blood Bank BLOOD SPECIMEN / Unknown Lab Venipuncture / Unknown 09/15/2023 7:06 AM CDT 09/15/2023 7:17 AM CDT us Yordy Bhandari MD LAB - BLOOD BANK ORDERABLES Letitia snow Result [facility] [address] [place] [address], [facility] [phone] * (ABNORMAL) CBC W DIFFERENTIAL (09/15/2023 7:06 AM CDT) WBC 9.3 4.0 - 10.7 x10E9/L 09/15/2023 7:21 AM [facility] RBC Count 4.94 3.90 - 5.20 x10E12/L 09/15/2023 7:21 AM [facility] Hemoglobin 13.2 11.9 - 15.8 g/dL 09/15/2023 7:21 AM [facility] Hematocrit 41.0 34.8 - 46.1 % 09/15/2023 7:21 AM [facility] MCV 83.0 80.0 - 98.0 fL 09/15/2023 7:21 AM [facility] MCH 26.7 26.7 - 33.6 pg 09/15/2023 7:21 AM [facility] MCHC 32.2 31.7 - 36.3 g/dL 09/15/2023 7:21 AM [facility] RDW-CV 13.6 11.3 - 14.8 % 09/15/2023 7:21 AM [facility] Platelet Count 234 150 - 420 x10E9/L 09/15/2023 7:21 AM [facility] MPV 11.8(H) 7.8 - 11.4 fL 09/15/2023 7:21 AM [facility] Neutrophil % 55.1 41.0 - 74.0 % 09/15/2023 7:21 AM [facility] Lymphocyte % 37.3 17.0 - 47.0 % 09/15/2023 7:21 AM [facility] Monocyte % 5.5 3.0 - 11.0 % 09/15/2023 7:21 AM [facility] Eosinophil % 1.5 0.0 - 7.0 % 09/15/2023 7:21 AM [facility] Basophil % 0.4 0.0 - 1.6 % 09/15/2023 7:21 AM [facility] Immature Granulocytes % 0.2 0.0 - 1.0 % 09/15/2023 7:21 AM [facility] Neutrophil Absolute 5.12 1.60 - 7.50 x10E9/L 09/15/2023 7:21 AM [facility] Lymphocyte Absolute 3.47 1.00 - 4.40 x10E9/L 09/15/2023 7:21 AM [facility] Monocyte Absolute 0.51 0.15 - 1.00 x10E9/L 09/15/2023 7:21 AM [facility] Eosinophil Absolute 0.14 0.00 - 0.60 x10E9/L 09/15/2023 7:21 AM [facility] Basophil Absolute 0.04 0.00 - 0.13 x10E9/L 09/15/2023 7:21 AM [facility] Blood BLOOD SPECIMEN / Unknown Lab Venipuncture / Unknown 09/15/2023 7:06 AM CDT 09/15/2023 7:12 AM [facility] us Yordy Bhandari MD LAB - HEMATOLOGY ORDERABLES Letitia snow Result [facility] [address] [place] [address], [facility] [phone] documented in this encounter Visit Diagnoses Diagnosis Liver disease- Primary Unspecified disorder of liver documented in this encounter Care Teams Machine Setup Operator Relationship Specialty Start Date End Date Keanu Potter APRN-CNP [address] [place] [phone] PCP - General 06/26/18 Keanu Potter APRN-CNP [address] [place] [phone] Nurse Practitioner 06/26/18 documented as of this encounter
--- OUTSIDE RECORDS SUMMARY | 2024-09-21 00:29 | XMS_ITS | Clinical Summary ---
Author Organization [facility] Address [address] [address] Care Team Providers Care Lawn Mower Mechanic Name Role Phone Keanu Potter CUSTOMER SUPPORT COORDINATOR-GOLF BALL WINDER Primary Care Pro vider Keanu Potter CUSTOMER SUPPORT COORDINATOR-GOLF BALL WINDER Unavailable Source Comments [facility],non-owned Affiliates and Associated Physician Practices is amultiple site organization consisting of ambulatory clinics and hospital sitesin [place], [place], [place] and [place]. This disclosure is being madepursuant to the Care Everywhere program and may not contain all information available regarding this patient. Last updated 17.[facility] Allergies No known active allergies Medications * [...] taking.Reported on 09/15/2023 Blood Glucose Monitoring Suppl ([employer] VERIO FLEX SYSTEM) w/Device KIT Use 1 [...] complication, with long-term current use of insulin ([facility]) Inject 1 mg into muscle as directed [...] complication, with long-term current use of insulin ([facility]) 4 times daily Use for injections 4-6 [...] Each 11 08/18/19 24 Active Continuous Glucose Seaweed Harvester ([employer] G7 Seaweed Harvester) DEVIIndications:T ype 2 diabetes mellitus without complications [...] give info/discuss info with school nurse. LAMP- Setswana. Problem Noted Date Diagnosed Date Microalbuminuria 12/03/2018 [...] microalbumin/creatinine Assessment & Plan (03/08/2019 5:23 PM STAFF SERVICES MANAGER): H/o microalbuminuria; cause uncertain 1. Repeat spot urine microalbumin/creatinine level (consider pediatric nephrology referral if it remains elevated) Assessment & Plan (12/03/2018 9:36 AM CDT): Microalbuminuria, ? Transient vs diabetes mellitus related 1. Obtain first morning voided urine specimen for microalbumin/creatinine ratio at [facility] Nonalcoholic fatty liver disease 05/02/2017 Cyst [...] LIVER, NEEDLE BIOPSY: - CHRONIC HEPATITIS WITH [id number] ACTIVITY, SEE COMMENT. - FOCAL BRIDGING FIBROSIS. [...] Referral Reason: Specialty Services Required Referral Location: [facility] Number of Visits Requested: 4 Referral to Medical Nutrition Therapy Standing Status: Standing Number of Occurrences: 1 Referral Priority: Routine Referral Type: Consultation Referral Reason: Specialty Services Required Referral Location: [facility] Number of Visits Requested: 4 HEMOGLOBIN [...] months Assessment & Plan (03/05/2021 1:20 PM STAFF SERVICES MANAGER): Diabetes mellitus, type 2 (+/-) steroid [...] weight loss and improve glycemic control; clinical shoulder joiner visit today Basaglar 36 units at 9 [...] meal snacking without taking insulin. Per the [place] [employer] practice guidelines [Diabetes Care 2015 [...] months Assessment & Plan (12/27/2019 5:40 PM STAFF SERVICES MANAGER): Continues to have fair, overall glycemic control; weight increased about 6 lb since Feb 07, 2019; no changes to insulin doses; encourage daily physical activity to promote weight loss and improve glycemic control; clinical shoulder joiner visit today Basaglar 36 units at 9 [...] meal snacking without taking insulin. Per the [place] [employer] practice guidelines [Diabetes Care 2015 [...] meal snacking without taking insulin. Per the [place] [employer] practice guidelines [Diabetes Care 2015 [...] weight:: Yes Follow-up by telephone (office number: [phone], option #4 or fax number: [phone]) as needed to review Edwige's interval home blood glucose records and make any additional insulin dose adjustments. Schedule annual eye examination Return appointment in 3 months Assessment & Plan (03/08/2019 5:22 PM STAFF SERVICES MANAGER): Excellent glycemic control; no changes; encourage [...] meal snacking without taking insulin. Per the [place] [employer] practice guidelines [Diabetes Care 2015 [...] weight:: Yes Follow-up by telephone (office number: [phone], option #4 or fax number: [phone]) as needed to review Edwige's interval home [...] meal snacking without taking insulin. Per the [place] [employer] practice guidelines [Diabetes Care 2015 [...] weight:: Yes Follow-up by telephone (office number: [phone], option #4 or fax number: [phone]) as needed to review Edwige's interval home [...] meal snacking without taking insulin. Per the [place] [employer] practice guidelines [Diabetes Care 2015 [...] weight:: Yes Follow-up by telephone (office number: [phone], option #4 or fax number: [phone]) in 1 weeks to review Edwige's interval home blood glucose records and make any additional insulin dose adjustments. Fax blood glucose levels to our offices (fax: [phone]) the last day of school for our [...] meal snacking without taking insulin. Per the [place] [employer] practice guidelines [Diabetes Care 2015 [...] all times. Follow-up by telephone (office number: [phone], option #4 or fax number: [phone]) in as needed weeks to review Edwgie's interval home blood glucose records and make any additional insulin dose adjustments. Return appointment in 3 months Assessment & Plan (02/23/2018 1:17 PM STAFF SERVICES MANAGER): Excellent glycemic control Lantus 36 units [...] meal snacking without taking insulin. Per the [place] [employer] practice guidelines [Diabetes Care 2015 [...] all times. Follow-up by telephone (office number: [phone], option #4 or fax number: [phone]) in as needed weeks to review Edwige's [...] meal snacking without taking insulin. Per the [place] [employer] practice guidelines [Diabetes Care 2015 [...] all times. Follow-up by telephone (office number: [phone], option #4 or fax number: [phone]) in as needed weeks to review Edwige's [...] meal snacking without taking insulin. Per the [place] [employer] practice guidelines [Diabetes Care 2015 [...] all times. Follow-up by telephone (office number: [phone], option #4 or fax number: [phone]) in as needed weeks to review Edwige's [...] meal snacking without taking insulin. Per the [place] [employer] practice guidelines [Diabetes Care 2015 [...] weight:: Yes Follow-up by telephone (office number: [phone], option #4 or fax number: [phone]) in 2 weeks to review Edwige's interval home blood glucose records and make any additional insulin dose adjustments. Return appointment in 3 months Assessment & Plan (01/17/2017 5:34 PM STAFF SERVICES MANAGER): Basaglar 36 units at 10 p.m. [...] meal snacking without taking insulin. Per the [place] [employer] practice guidelines [Diabetes Care 2015 [...] all times. Follow-up by telephone (office number: [phone], option #4 or fax number: [phone]) in 2 weeks to review Edwige's interval [...] meal snacking without taking insulin. Per the [place] [employer] practice guidelines [Diabetes Care 2015 [...] office visit) Follow-up by telephone (office number: [phone], option #4 or fax number: [phone]) in 2 weeks to review Edwige's interval [...] snacking without taking insulin. 9. Per the [place] [employer] practice guidelines [Diabetes Care 2015 [...] times. 12. Follow-up by telephone (office number: [phone], option #4 or fax number: [phone]) in 2 weeks to review Banchristiano's interval home blood glucose records and make any additional insulin dose adjustments. 13. Return appointment in 3 months Assessment & Plan (03/26/2016 5:21 PM STAFF SERVICES MANAGER): Lantus 20 units at 9 p.m. [...] meal snacking without taking insulin. Per the [place] [employer] practice guidelines [Diabetes Care 2015 [...] all times. Follow-up by telephone (office number: [phone], option #4 or fax number: [phone]) in 2 weeks to review Edwige's interval [...] meal snacking without taking insulin. Per the [place] [employer] practice guidelines [Diabetes Care 2015 [...] all times. Follow-up by telephone (office number: [phone], option #4 or fax number: [phone]) in 2 weeks to review Edwige's interval [...] AM Immunizations Immunization Administration Dates Next Due Voovio aka 3Ditize primary monoval ent 12+ yr 0.3mL Purple [...] Info) Description 11/20/2024 8:45 AM CDT Appointment [facility] Pediatrics - Diabetes Mgmt [address] [place] [address] Chriss Hartley MD [address] [place] [address] Fidelina Russo, CUSTOMER SUPPORT COORDINATOR-GOLF BALL WINDER [address] [place] [phone] Health Maintenance Due Date Last Done Comments [...] URINE RANDOM PANEL Routine 02/10/2021 3:16 PM STAFF SERVICES MANAGER Microalbuminuria HEPATITIS SCREEN ACUTE Routine 6 12:46 PM CDT from Last 3 Months or Most Recently Relevant to Health Maintenance Results * (ABNORMAL) COMPREHENSIVE METABOLIC PANEL (09/15/2023 7:06 AM CDT) BUN 8 7 - 26 mg/dL 09/15/2023 7:52 AM [facility] Creatinine 0.42(L) 0.56 - 0.96 mg/dL 09/15/2023 7:52 AM [facility] Sodium 138 136 - 145 mmol/L 09/15/2023 7:52 AM [facility] Potassium 4.2 3.5 - 4.5 mmol/L 09/15/2023 7:52 AM [facility] Chloride 104 98 - 107 mmol/L 09/15/2023 7:52 AM [facility] CO2 26 22 - 29 mmol/L 09/15/2023 7:52 AM [facility] Glucose 194(H) 70 - 115 mg/dL 09/15/2023 7:52 AM [facility] Calcium 9.0 8.4 - 10.2 mg/dL 09/15/2023 7:52 AM [facility] Protein Total 7.6 6.0 - 8.3 g/dL 09/15/2023 7:52 AM [facility] Albumin 3.6 3.4 - 5.0 g/dL 09/15/2023 7:52 AM [facility] Bilirubin Total 0.4 0.2 - 1.2 mg/dL 09/15/2023 7:52 AM [facility] Alkaline Phosphatase 80 40 - 150 U/L 09/15/2023 7:52 AM [facility] ALT 47 5 - 55 U/L 09/15/2023 7:52 AM [facility] AST 29 5 - 34 U/L 09/15/2023 7:52 AM [facility] Anion Gap 8 6 - 16 09/15/2023 7:52 AM [facility] BUN/Creatinine Ratio 19 7 - 23 09/15/2023 7:52 AM [facility] Osmolality Calculated 290 275 - 295 mOsm/kg 09/15/2023 7:52 AM [facility] Albumin/Globulin Ratio 0.9(L) 1.1 - 2.3 09/15/2023 7:52 AM [facility] eGFR by CKD-EPI >90 >=90 mL/min/1.7 3 m2 09/15/2023 7:52 AM [facility] Blood BLOOD SPECIMEN / Unknown Lab Venipuncture / Unknown 09/15/2023 7:06 AM CDT 09/15/2023 7:12 AM CDT Yordy Bhandari MD LAB - CHEMISTRY ORDERABLES Final Result Performing Organization Address City/[facility] Co de Phone Number [facility] [address] [place] [phone], [facility] [phone] * (ABNORMAL) HEMOGLOBIN A1C - POCT INTERFACED (08/18/2023 1:01 PM CDT) Hemoglobin A1C POCT 10.6(H) <5.7 % 08/18/2023 1:06 PM T [facility] Estimated Average Glucose 258 mg/dL 08/18/2023 1:06 PM T [facility] Blood BLOOD SPECIMEN / Unknown 08/18/2023 1:01 PM CDT 08/18/2023 1:06 PM CDT Narrative [facility] - 08/18/2023 1:06 PM CDT HbA1c [...] ORDERABLES F inal Result Performing Organization Address City/State/[facility] Co de Phone Number [facility] [address] [place] [address] * MICROALB/CREAT RATIO URINE RANDOM PANEL (02/10/2021 3:16 PM [facility]) Albumin Random Urine 26.2 Not Established ug/mL 02/10/2021 4:00 PM [facility] Creatinine Urine 161 Not Established mg/dL 02/10/2021 4:00 PM [facility] Urine Albumin/Creati nine Ratio 16 <30 mg/g 02/10/2021 4:00 PM [facility] Urine URINE SPECIMEN OBTAINED BY CLEAN CATCH PROCEDURE / Unknown Collection / Unknown 02/10/2021 3:16 PM STAFF SERVICES MANAGER 02/10/2021 3:34 PM STAFF SERVICES MANAGER us Paola Booker MD LAB - URINE CHEMISTRY ORDERABLES Final Result Performing Organization Address [facility]/ZIP Co de Phone Number [facility] [address] [place] [address], [facility] [phone] * HEPATITIS SCREEN ACUTE (09/21/2015 12:46 PM CDT) HAV Antibody IgM Non Reactive Non Reactive 09/23/2015 10:36 AM CDT [facility] HBsAg Non Reactive Non Reactive 09/23/2015 10:36 AM CDT [facility] HBc Antibody IgM Non Reactive Non Reactive 09/23/2015 10:36 AM CDT [facility] HCV Antibody Screen Non Reactive Non Reactive 09/23/2015 10:36 AM CDT [facility] HCV S/C Ratio 0.05 0.00 - 0.79 09/23/2015 10:36 AM T [facility] Comment: Jpuvwn-xg-dqvvzk ratio (S/CO) <0.80: Non Reactive Blood BLOOD SPECIMEN / Unknown Lab Venipuncture / Unknown 09/21/2015 12:46 PM CDT 09/21/2015 12:58 PM CDT Narrative [facility] - 09/23/2015 10:36 AM CDT Non Reactive - Antibodies to Hepatitis C virus (HCV) were not detected, result does not exclude early acute HCV infection. us Martha Hernandez MD LAB - CHEMISTRY ORDERABLES F inal Result Performing Organization Address [facility]/ZIP Co de Phone Number [facility] [address] [place] [address] from Last 3 Months or Most Recently Relevant to Health Maintenance Insurance MEDICAID - OUT OF STATE [facility] MEDICAID - OUT OF STATE Member Subscriber Plan / Payer (Ef fective for All Dates) Name:DavidcésarverenicekillianEdwige Relation to Subscriber:Self Name:EDWIGE GO Payer ID:Not on file Group ID:Not on file Type:Medicaid Address: [address] MEDICAID - OUT OF [facility] MEDICAID - OUT OF STATE MEDICAID - OUT OF STATE MEDICAID - OUT OF [facility] MEDICAID - OUT OF [facility] MEDICAID - OUT OF [facility] MEDICAID - OUT OF STATE MEDICAID - OUT OF [facility] MEDICAID - OUT OF [facility] MEDICAID - OUT OF [facility] MEDICAID - OUT OF [facility] MEDICAID - OUT OF [facility] MEDICAID - OUT OF [facility] MEDICAID - OUT OF [facility] Member Subscriber Plan / Payer (Ef fective 2018-Present) Name:DaviddanyelEdwige Relation to Subscriber:Self Name:FERNANDO GO Payer ID:Not on file Group ID:Not on file Type:Medicaid Address: [address] MEDICAID - OUT OF STATE Member Subscriber Plan / Payer (Ef fective 2018-Present) Name:Edwige Cho Relation to Subscriber:Self Name:FERNANDO GO Payer ID:Not on file Group ID:Not on file Type:Medicaid Address: [address] [employer] [facility] MEDICAID - OUT OF [facility] [employer] [facility] Member Subscriber Plan / Payer (Ef fective 2019-Present) Name:Daviddanyel Alvarochristiano Relation to Subscriber:Self Name:FERNANDO GO Payer ID:[id number] (NAIC) Group ID:Not on file Type:Medicaid Managed Care Address: ATTN CLAIMS DEPARTMENT [address] [place] [address] [place] [address] Advance Directives * Full Code (Latest Code Status on File) Date Activated Date Inactivated Comments 01/26/2017 12:20 AM 01/27/2017 3:23 PM * Full Code Date Activated Date Inactivated Comments 09/19/2015 8:41 PM 09/22/2015 5:37 PM Care Teams Lawn Mower Mechanic Relationship Specialty Start Date End Date Keanu Potter APRN-CNP [address] [phone] PCP - General 06/26/18 Keanu Potter APRN-CNP [address] [place] [phone] Nurse Practitioner 06/26/18
--- OUTSIDE RECORDS SUMMARY | 2024-09-21 00:29 | XMS_ITS | Encounter Summary ---
Author Organization [facility] Address [address] [place] [address] Care Team Providers Care Forestry Support Specialist Name Role Phone Keanu Potter MUD LOGGER-PATIENT ACCOUNT SPECIALIST Primary Care Pro vider Keanu Potter MUD LOGGER-PATIENT ACCOUNT SPECIALIST Primary Care Pro vider Keanu Potter MUD LOGGER-PATIENT ACCOUNT SPECIALIST Unavailable Reason for Visit * Reason Onset Date Comments Diabetes 05/08/2018 Encounter Details Date Type Department Care Team (Late st Contact Info) Description 05/08/2018 Telephone [facility] Pediatrics - Endocrinology [address] [place] [address] Eldon Panchal APRN-CNP [address] [place] [address] Diabetes Social History Tobacco Use Types Packs/Day [...] PM CDT Received faxed blood sugars from [employer] from 04/30/18 until 05/12/18. See flow sheet. * Telephone Encounter - Larissa Petersen RN - 05/12/2018 8:42 AM CDT Returned call to [facility] [phone]. No answer.left vm to call [employer] at [phone] and call office. * Telephone Encounter - [...] AM CDT PA placed for insulin via [employer] documented in this encounter Plan of Treatment Upcoming Encounters Date Type Department Care Team (Late st Contact Info) Description 11/20/2024 8:45 AM CDT Appointment [facility] Pediatrics - Diabetes [address] [address] Chriss Hartley MD [address] [place] [address] Fidelina Russo APRN-[address] [phone] documented as of this encounter Visit Diagnoses Not on filedocumented in this encounter Care Teams Forestry Support Specialist Relationship Specialty Start Date End Date Keanu Potter APRN-CNP [address] [place] [phone] PCP - General Nurse Practitioner 09/15/15 06/25/18 Keanu Potter APRN-CNP [address] [place] [phone] PCP - General 06/26/18 Keanu Potter APRN-CNP [address] [place] [phone] Nurse Practitioner 06/26/18 documented as of this encounter
--- OUTSIDE RECORDS SUMMARY | 2024-09-21 00:29 | XMS_ITS | Encounter Summary ---
Author Organization [facility] Address [address] [facility] [place] [address] Care Team Providers Care Np Name Role Phone Keanu Potter METAL CUT OFF SAW TENDER-POWER SHOVEL MECHANIC Primary Care Pro vider Keanu Potter METAL CUT OFF SAW TENDER-POWER SHOVEL MECHANIC Primary Care Pro vider AbbeyKeanu cardona METAL CUT OFF SAW TENDER-POWER SHOVEL MECHANIC Unavailable Reason for Visit * Reason Onset Date Comments Question 10/27/2015 Encounter Details Date Type Department Care Team (Late st Contact Info) Description 10/27/2015 Telephone [facility] Pediatrics - [address] [address] Radha Shell MD [facility] [place] [address] Question Social History Tobacco Use [...] 12:17 PM CDT Called LIV Hubbard at [phone]. Confirmed school nurse had received new dosing information and dose was increased yesterday evening for dinner. * Telephone Encounter - Larissa Petersen RN - 10/28/2015 10:40 AM CDT Reviewed dosing with JORJE Juan. Will increase lunch and dinner to 4 units nightly. Letter sent to aHydee school nurse to update doses and notify family. Attempted to call office at [phone]. No answer. Faxed orders. Asked school nurse [...] Fax notes and orders to her at [phone] She is due for a physical. Can you do the physical when her on 11/11/15? Having a hard time with communication with health department. * Telephone Encounter - Larissa Petersen RN - 10/27/2015 1:32 PM CDT Spoke with Haydee ([phone]), school nurse to and reviewed bgs that [...] CDT School RN Haydee, requesting call back [phone]. documented in this encounter Plan of Treatment Upcoming Encounters Date Type Department Care Team (Late st Contact Info) Description 11/20/2024 8:45 AM CDT Appointment [facility] Pediatrics - Diabetes [address] [place] [address] Chriss Hartley MD [address] [place] [address] Fidelina Russo APRN-CNP [address] [place] [phone] documented as of this encounter Visit Diagnoses Not on filedocumented in this encounter Care Teams Np Relationship Specialty Start Date End Date Keanu Potter APRN-CNP [address] [place] [phone] PCP - General Nurse Practitioner 09/15/15 06/25/18 Keanu Potter APRN-CNP [address] [place] [phone] PCP - General 06/26/18 Keanu Potter APRN-CNP [address] [place] [phone] Nurse Practitioner 06/26/18 documented as of this encounter
--- OUTSIDE RECORDS SUMMARY | 2024-09-21 00:29 | XMS_ITS | Encounter Summary ---
Author Organization [facility] Address [address] [facility] [place] [address] Care Team Providers Care Electrical Manufacturing Engineer Name Role Phone Keanu Potter PILLOWCASE CLEANER-OYSTER OPENER Primary Care Pro vider Keanu Potter PILLOWCASE CLEANER-OYSTER OPENER Primary Care Pro vider Keanu Potter PILLOWCASE CLEANER-OYSTER OPENER Unavailable Reason for Visit * Reason Onset Date Comments General 06/01/2018 Encounter Details Date Type Department Care Team (Late st Contact Info) Description 06/01/2018 Telephone [facility] Pediatrics - Diabetes [place] [address] [place] [address] Eldon Panchal APRN-CNP [address] [place] [address] General Social History Tobacco Use Types Packs/Day [...] Prior. Discussed the school field trip to [facility] planned -July 10. There is no school nurse planning to attend. Nurse was not aware Dian was going on the field trip until I left her a message last week. Per nurse, a family friend, Carlos Larry, will be attending the field trip [phone] PLAN: Will contact Carlos for evaluation of diabetes knowledge and training as needed. [phone] Nurse Prior to fax us blood sugars by June 23 Will plan to discuss dosing changes and fax [place] [facility] on TuesdayJune 27 Called Carlos Larry [phone], left a detailed message to call me. documented in this encounter Plan of Treatment Upcoming Encounters Date Type Department Care Team (Late st Contact Info) Description 11/20/2024 8:45 AM CDT Appointment [facility] Pediatrics - Diabetes Mgmt [address] [place] [address]. [place] [address] Chriss Hartley MD [address] [place] [address] Fidelina Russo APRN-OYSTER OPENER [address] [place] [phone] documented as of this encounter Visit Diagnoses Not on filedocumented in this encounter Care Teams Electrical Manufacturing Engineer Relationship Specialty Start Date End Date Keanu Potter APRN-CNP [address] [place] [phone] PCP - General Nurse Practitioner 09/15/15 06/25/18 Keanu Potter APRN-CNP [address] [place] [phone] PCP - General 06/26/18 Keanu Potter APRN-CNP [address] [place] [phone] Nurse Practitioner 06/26/18 documented as of this encounter
--- OUTSIDE RECORDS SUMMARY | 2024-09-21 00:29 | XMS_ITS | Encounter Summary ---
Author Organization [facility] Address [address] [place] [address] Care Team Providers Care Repairer And Checker Name Role Phone Keanu Potter FINAL OPERATIONS TECHNICIAN-REGISTERED ASSOCIATE Primary Care Pro vider Keanu Potter FINAL OPERATIONS TECHNICIAN-REGISTERED ASSOCIATE Unavailable Encounter Details Date Type Department Care Team (Late st Contact Info) Description 03/05/2021 Telephone [facility] Pediatrics - Diabetes [address] [address] Chriss Hartley MD [address] [place] [phone] Social History Tobacco Use Types Packs/Day Years [...] COVID-19? No / Unsure 03/05/2021 12:20 PM FIELD REPORTER documented as of this encounter Functional Status [...] Info) Description 11/20/2024 8:45 AM CDT Appointment [facility] - Diabetes [address] [address] Chriss Hartley MD [address] [place] [phone] Fidelina Russo APRN-REGISTERED ASSOCIATE [address] [place] [phone] documented as of this encounter Visit Diagnoses Not on filedocumented in this encounter Care Teams Repairer And Checker Relationship Specialty Start Date End Date Keanu Potter APRN-CNP [address] [place] [phone] PCP - General 06/26/18 Keanu Potter, JASWANT-ROBERT [address] [place] [phone] Nurse Practitioner 06/26/18 documented as of this encounter
--- OUTSIDE RECORDS SUMMARY | 2024-09-21 00:29 | XMS_ITS | Encounter Summary ---
Author Organization [facility] Address [address] [place] [address] Care Team Providers Care Construction Project Mgr Name Role Phone Keanu Potter SIMPLEX PRINTER INSTALLER-GENERATION TECHNOLOGIST Primary Care Pro vider Keanu Potter SIMPLEX PRINTER INSTALLER-GENERATION TECHNOLOGIST Primary Care Pro vider AbbeyKeanu cardona SIMPLEX PRINTER INSTALLER-GENERATION TECHNOLOGIST Unavailable Encounter Details Date Type Department Care Team (Late st Contact Info) Description 11/08/2017 Telephone [facility] Pediatrics - Diabetes [address] [address] Larissa Petersen RN Social History Tobacco Use [...] that patient was not active. Verified with [employer] that patient is no longer active as of 05/07/2018. Called family with assistance of [facility] british interpreters. Called both numbers without success. Left vm on [phone] that [employer] insurance is inactive and the family needs to call and reinstate the applications. Asked them to also call office immediately if they are out of insulin. Fabric Inspector stated she left her number and instructions on how to call her for assistance with interpreting. Called school nurse and asked her to send note home asking family to call office as soon as possible. Reviewed how to call office and how to call cigarette and filter chief inspector for assistance. * Telephone Encounter - Larissa [...] in margin. Called home numbers with [employer] cigarette and filter chief inspector Sofia. No answer. Left vm for parents to call office regarding low blood sugars. Expressed urgency in vm for calling. Faxed letter to school requesting family call office and asked school nurse to fax updated bgs. School fax ([phone]) documented in this encounter Plan of Treatment Upcoming Encounters Date Type Department Care Team (Late st Contact Info) Description 11/20/2024 8:45 AM CDT Appointment [facility] Pediatrics - Diabetes Mgmt [address] [place] [address] Chriss Hartley MD [address] [place] [phone] Fidelina Russo, SIMPLEX PRINTER INSTALLER-GENERATION TECHNOLOGIST [address] [place] [phone] documented as of this encounter Visit Diagnoses Not on filedocumented in this encounter Care Teams Construction Project Mgr Relationship Specialty Start Date End Date Keanu Potter APRN-CNP [address] [place] [phone] PCP - General Nurse Practitioner 09/15/15 06/25/18 Keanu Potter APRN-CNP [address] [place] [phone] PCP - General 06/26/18 Keanu Potter APRN-CNP [address] [place] [phone] Nurse Practitioner 06/26/18 documented as of this encounter
--- OUTSIDE RECORDS SUMMARY | 2024-09-21 00:29 | XMS_ITS | Encounter Summary ---
Author Organization [facility] Address [address] [facility] [place] [address] Care Team Providers Care Cleaner Assistant Name Role Phone Keanu Potter STAFF REPORTER-ELECTRONIC ASSEMBLY Primary Care Pro vider Keanu Potter STAFF REPORTER-ELECTRONIC ASSEMBLY Primary Care Pro vider AbbeyKeanu cardona STAFF REPORTER-ELECTRONIC ASSEMBLY Unavailable Encounter Details Date Type Department Care Team (Late st Contact Info) Description 11/04/2015 Telephone [facility] Pediatrics - Diabetes [address] [address] Chriss Hartley MD [address] [place] [phone] Social History Tobacco Use Types Packs/Day Years [...] Author No 09/30/2015 2:14 PM CDT Triny Bsuh RN * Does person have difficulty dressing/bathing? [...] verbalized understanding. Letter faxed with updates to [phone].Asked Haydee to fax bgs over at the end of the week for review. She agreed. Steroid therapy to be fi nished December 10. * Telephone Encounter - Larissa Petersen RN - 11/18/2015 3:26 PM CDT Re[facility] bgs from [facility]. See doc flowsheet * Telephone Encounter - Larissa Petersen RN - 11/13/2015 3:26 PM CDT [facility]gs from current [...] 11/10/2015 3:16 PM CDT [facility]. Plan per injection [...] 1:53 PM CDT [facility] reviewing recent blood sugars faxed (see documentation flow sheet) Current set doses: Breakfast 4 units Lunch 6 units Dinner 6 units No changes made at this time due to changes made recently. [facility] nurse to fax blood sugars again next week for review. * Telephone Encounter - Carlos Still RN - 11/04/2015 12:16 PM CDT I returned call to Haydee [facility] nurse. [phone] F [phone]. See doc flow sheet for bg review. [...] Info) Description 11/20/2024 8:45 AM CDT Appointment [facility] Pediatrics - Diabetes [address] [address] Chriss Hartley MD [address] [place] [address] Fidelina Russo APRN-ELECTRONIC ASSEMBLY [address] [place] [phone] documented as of this encounter Visit Diagnoses Not on filedocumented in this encounter Care Teams Cleaner Assistant Relationship Specialty Start Date End Date Keanu Potter APRN-CNP [address] [place] [phone] PCP - General Nurse Practitioner 09/15/15 06/25/18 Keanu Potter APRN-CNP [address] [place] [phone] PCP - General 06/26/18 Keanu Potter, JASWANT-ELECTRONIC ASSEMBLY [address] [place] [phone] Nurse Practitioner 06/26/18 documented as of this encounter
--- OUTSIDE RECORDS SUMMARY | 2024-09-21 00:29 | XMS_ITS | Encounter Summary ---
Author Organization [facility] Address [address] [facility] [place] [address] Care Team Providers Care Mail Manager Name Role Phone Keanu Potter SHANK SKINNER-DIRECTOR VACCINE Primary Care Pro vider Keanu Potter SHANK SKINNER-DIRECTOR VACCINE Primary Care Pro vider AbbeyKeanu cardona SHANK SKINNER-DIRECTOR VACCINE Unavailable Encounter Details Date Type Department Care Team (Late st Contact Info) Description 01/30/2016 Telephone [facility] Pediatrics - [address] [address] Radha Shell MD [address] [place] [phone] Social History Tobacco Use Types Packs/Day [...] Larissa Petersen RN - 02/27/2016 12:46 PM MANAGER OPERATING Called Nurse Hubbard At 1114: [phone] to review bgs. See doc flowsheet Reviewed dosing plan with Gordo Panchal APRN who suggested to increase Lunch dose to 32 units. letter sent to school to reflect changes. Attempted to return call to Nurse Hubbard at 1252 to review dose changes. No answer. Current dosing: Lantus 15 units Humalog: Breakfast: 24 units Lunch: 32 units Dinner: 28 units Snack: 4 units GER OPERATING * Telephone Encounter - Larissa Petersen RN - 02/13/2016 10:26 AM MANAGER OPERATING Called Nurse Hubbard [phone] to review bgs from this week. See doc flowsheet Afternoon and evening bgs are elevated. Nurse to ask Dian if she is snacking in the afternoon and how much she is taking. She will call back. Lunch bg 345, Reviewed with Dr. Hartley. Plan is to increase Humalog meal dose to 24 units. Letter sent to school reflecting changes. GER OPERATING GER OPERATING GER OPERATING GER OPERATING * Telephone Encounter - Larissa Petersen RN - 02/06/2016 1:18 PM MANAGER OPERATING iDan called to report bgs. See doc flowsheet Per Gordo Panchal APRN-ROBERT Increase all meals to 22 units. Reviewed with Dian and reviewed pen use instructions. Asked Ceciliademetrice to call Dr. Erickson and page her if she has multiple lows. She agreed. Asked her to call Tuesday to review. GER OPERATING * Telephone Encounter - Larissa Petersen RN - 02/04/2016 1:43 PM MANAGER OPERATING Family does not speak Guinean. They have been using Dian to report her bgs. Dian called to report her bgs. See doc flowsheet Per injection protocol: Increase breakfast to 16 units Increase lunch and dinner to 19 units. Ceicliademetrice read back the doses to me at the end of the conversation to confirm. Asked her to call back on Tuesday to report bgs again. She stated that she had been checking her ketone levels and they have been negative. GER OPERATING * Telephone Encounter - Radha Shell MD - 01/30/2016 12:48 PM MANAGER OPERATING Please remind family that Dian was to have follow up labs this week. Thanks! GER OPERATING documented in this encounter Plan of Treatment Upcoming Encounters Date Type Department Care Team (Late st Contact Info) Description 11/20/2024 8:45 AM CDT Appointment [facility] Pediatrics - Diabetes Mgmt [address] [place] [address]. [place] [address] Chriss Hartley MD [address] [place] [address] Fidelina Russo APRN-DIRECTOR VACCINE [address] [place] [phone] documented as of this encounter Visit Diagnoses Not on filedocumented in this encounter Care Teams Mail Manager Relationship Specialty Start Date End Date Keanu Potter APRN-CNP [address] [place] [phone] PCP - General Nurse Practitioner 09/15/15 06/25/18 Keanu Potter APRN-CNP [address] [place] [phone] PCP - General 06/26/18 Keanu Potter APRN-CNP [address] [place] [phone] Nurse Practitioner 06/26/18 documented as of this encounter
--- OUTSIDE RECORDS SUMMARY | 2024-09-21 00:29 | XMS_ITS | Encounter Summary ---
Author Organization [facility] Address [address] [facility] [place] [address] Care Team Providers Care Production Line Technician Name Role Phone Keanu Potter MARINE RADIO INSTALLER AND SERVICER-COPY LATHE OPERATOR Primary Care Pro vider Keanu Potter MARINE RADIO INSTALLER AND SERVICER-COPY LATHE OPERATOR Primary Care Pro vider Keanu Potter MARINE RADIO INSTALLER AND SERVICER-COPY LATHE OPERATOR Unavailable Reason for Visit * Reason Onset Date Comments Blood Sugar Problem 06/02/2018 Encounter Details Date Type Department Care Team (Late st Contact Info) Description 06/02/2018 Telephone [facility] Pediatrics - Diabetes [id number] [place] [address] Eldon Panchal APRN-CNP [address] [place] [phone] Blood Sugar Problem Social History Tobacco Use [...] will be attending the class trip to [facility] with her daughter and 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 She is familiar with much of her diabetes care, was here initially to learn about insulin at diagnosis, and needs a survival skills class. Scheduled for 829am on June 26, as she is only off work on Mondays, works 2 jobs. [facility] Room is reserved, Carlos will meet diabetes nurse in clinic. * Telephone Encounter - May Alvarez RN - 06/02/2018 2:55 PM CDT School RN sent over BG logs. See doc flow sheet. No changes made at this time. * Telephone Encounter - Carlos Still RN - 06/02/2018 2:54 PM CDT Called Carlos Larry [phone], left a detailed message to call me. documented in this encounter Plan of Treatment Upcoming Encounters Date Type Department Care Team (Late st Contact Info) Description 11/20/2024 8:45 AM CDT Appointment [facility] Pediatrics - Diabetes [address] [address] Chriss Hartley MD [address] [place] [phone] Fidelina Russo APRN-COPY LATHE OPERATOR [address] [place] [phone] documented as of this encounter Visit Diagnoses Not on filedocumented in this encounter Care Teams Production Line Technician Relationship Specialty Start Date End Date Keanu Potter APRN-CNP [address] [place] [phone] PCP - General Nurse Practitioner 09/15/15 06/25/18 Keanu Potter APRN-CNP [address] [place] [phone] PCP - General 06/26/18 Keanu Potter APRN-ROBERT [address] [place] [phone] Nurse Practitioner 06/26/18 documented as of this encounter
--- OUTSIDE RECORDS SUMMARY | 2024-09-21 00:29 | XMS_ITS | Encounter Summary ---
Author Organization [facility] Address [address] [facility] [place] [address] Care Team Providers Care Blueprint Duplicator Name Role Phone Keanu Potter BURNING MACHINE OPERATOR-DEPUTY CORONER INVESTIGATOR Primary Care Pro vider Keanu Potter BURNING MACHINE OPERATOR-DEPUTY CORONER INVESTIGATOR Primary Care Pro vider AbbeyKeanu cardona BURNING MACHINE OPERATOR-DEPUTY CORONER INVESTIGATOR Unavailable Reason for Visit * Reason Onset Date Comments Insurance Issue/question 05/18/2018 Encounter Details Date Type Department Care Team (Late st Contact Info) Description 05/18/2018 Telephone [facility] Pediatrics - Diabetes [address] [address] Chriss Hartley MD [address] [place] [phone] Insurance Issue/question Social History Tobacco Use Types [...] the insurance but is now covered by [place] Medicaid. Humalog insulin is now covered rather than Admelog. I called Nurse Prior to let her know that insulin is ready at [facility], she will make Dian aware. * Telephone Encounter - Carlos Still RN - 05/18/2018 10:27 AM CDT I returned call to nurse Rosalind at [facility] [phone]. Reports pt's Medicaid has lapsed and she [...] ask her to look pt us in [place] Medicaid system (detailed message left for [facility]). [...] Description 11/20/2024 8:45 AM CDT Appointment [facility] Pediatrics - Diabetes [address] [place] [address] Chriss Hartley MD [address] [place] [phone] Fidelina Russo, BURNING MACHINE OPERATOR-DEPUTY CORONER INVESTIGATOR [address] [place] [phone] documented as of this encounter Visit Diagnoses Not on filedocumented in this encounter Care Teams Blueprint Duplicator Relationship Specialty Start Date End Date Keanu Potter APRN-CNP [address] [place] [phone] PCP - General Nurse Practitioner 09/15/15 06/25/18 Keanu Potter APRN-CNP [address] [place] [phone] PCP - General 06/26/18 Keanu Potter APRN-CNP [address] [place] [phone] Nurse Practitioner 06/26/18 documented as of this encounter
[2024-09-21 02:12] VITALS: BP 115/69; PULSE 100; RESP 15; O2SAT 97
[2024-09-21 04:43] VITALS: BP 115/64; PULSE 91; RESP 18; O2SAT 99
--- NOTE | 2024-09-21 05:02 | ED_ITS ---
HPI - Skin/Abscess/Foreign Bdy General Chief complaint: Skin/Abscess/Foreign Body Stated complaint: abcess to underarm Time Seen by Provider: 09/21/24 00:20 History of Present Illness HPI narrative: 19-year-old female with history of hidradenitis suppurative of presenting to the emergency depart with left upper extremity abscess. She states her symptoms started few days ago in the left upper extremity while she was picking at some scabs. Looks like she has an infected abscess in the left axillary region. She has had previous incision and drainages based on the appearance of her scar tissue. Denies any systemic symptoms but has some tenderness in the area in question. Was otherwise in her normal state of health. No fever, chills, nausea, vomiting. No active drainage from the left axilla. She was taking ibuprofen at home for symptom relief. Related Data Allergies Allergy/AdvReac Type Severity Reaction Status Date / Time No Known Allergies Allergy Verified 09/20/24 21:05 Review of Systems Review of Systems: As reviewed above in HPI Exam Narrative: GENERAL: [Well-appearing, well-nourished, and in no acute distress.] HEAD: [Normocephalic, atraumatic.] EYES: [PERRLA and EOMI.] ENT: Nares clear, no rhinorrhea or epistaxis. Mucous membranes moist. NECK: Supple. CHEST: [Clear to auscultation. No respiratory distress.] HEART: [Regular rate and rhythm]. No murmur heard. [Normal peripheral pulses.] ABDOMEN: [Soft, nondistended], [nontender], [No rigidity or guarding] EXTREMITIES: Normal range of motion. [No edema.] Left axilla has a large area proximally 5 x 2 cm of fluctuance with overlying induration and skin condition consistent with hidradenitis suppurative with active abscess. No streaking lymphadenopathy. No distal perfusion deficits. 2+ pulses radially, good range of motion. Previous surgical scars from incision and drainages in the left axilla. SKIN: Warm, dry, no rash. NEURO: [No focal deficits]. Alert and oriented [x3.] PSYCH: [Normal mood and affect.] Course Vital Signs Vital signs: Vital Signs Temperature 36.9 C 09/20/24 20:59 Pulse Rate 101 H 09/20/24 20:59 Respiratory Rate 16 09/20/24 20:59 Blood Pressure 146/71 H 09/20/24 20:59 Pulse Oximetry 100 09/20/24 20:59 Oxygen Delivery Room Air 09/20/24 20:59 Temperature 36.9 C 09/20/24 20:59 Pulse Rate 98 09/20/24 22:30 Respiratory Rate 20 09/20/24 22:30 Blood Pressure 119/65 09/20/24 22:30 Pulse Oximetry 100 09/20/24 22:30 Oxygen Delivery Room Air 09/20/24 20:59 Procedures Abscess I/D upper extremity: Date of Incision: 09/21/24 Time of Incision: 04:00 Side (if applicable): left Sedation/analgesia: none Local Anesthetic: lidocaine 1% and with epi Amount of anesthesia used (mL): 5 Technique: needle aspiration, incised with #11 blade and probed loculations Amount of fluid expressed (mL): 10 Irrigation: Yes Packing used?: none I&D Results: Pus and Blood Complications: pain MDM - Skin/Abscess/Foreign Bdy MDM Narrative Medical decision making narrative: 19-year-old female with history of hidradenitis suppurative of presenting to the emergency depart with left upper extremity abscess. She states her symptoms started few days ago in the left upper extremity while she was picking at some scabs. Looks like she has an infected abscess in the left axillary region. She has had previous incision and drainages based on the appearance of her scar tissue. Denies any systemic symptoms but has some tenderness in the area in question. Was otherwise in her normal state of health. No fever, chills, nausea, vomiting. No active drainage from the left axilla. She was taking ibuprofen at home for symptom relief. Left axilla has a large area proximally 5 x 2 cm of fluctuance with overlying induration and skin condition consistent with hidradenitis suppurative with active abscess. No streaking lymphadenopathy. No distal perfusion deficits. 2+ pulses radially, good range of motion. Previous surgical scars from incision and drainages in the left axilla. Bedside ultrasound was used to confirm fluid collection in the left upper axilla without any signs of vascular involvement. Patient agreed to incision and drainage at bedside. This was conducted with expression of purulent material with some blood clots. Patient felt better and the flexure mass has decreased significantly. Vital signs are re-evaluated normal. She is given ibuprofen and Bactrim. Sent home with and 7 days of Bactrim and return precautions with follow-up instructions. Wound was left open with some Steri-Strips to well approximate the area that was incised. Patient's pain is under control. Safe for discharge. Medical Records Attestation: I reviewed the patient's medical records. Discharge Plan Discharge Clinical Impression: Abscess of skin or subcutaneous tissue, Suppurative hidradenitis Patient Disposition: Home Condition: Stable Instructions: Antibiotic Form, Abscess (ED) Patient Language: Northern Irish Prescriptions: No Action sulfamethoxazole-trimethoprim [Bactrim DS] 800-160 mg tablet 1 tablet PO Q12H 10 Days Qty: 20 0RF Follow-up/Referrals: [facility] [Primary Care Provider] -
== END 2024-09-21 04:43 | disposition home or self-care (01) ==
PROVIDERS: Emergency Provider Student in an Organized Health Care Education/Training Program
DX: L73.2 Hidradenitis suppurativa (principal)
CPT/HCPCS: 10060; 99283; A9270; J2004